=== PATIENT | female | born 1985 | race Caucasian/White ===

== ENCOUNTER 2016-08-05 20:43 | Emergency (ER) | payer MEDICAID ==
[2016-08-05] MEDS ORDERED: DEXAMETHASONE 10 MG/ML VIAL PO STA (21:49)
[2016-08-05] MEDS ORDERED: AZITHROMYCIN 250 MG TABLET PO STA (21:49)
[2016-08-05] MEDS ORDERED: CHERRY SYRUP 10 ML UDC PO ONE (21:51)
[2016-08-05] MEDS ORDERED: DEXAMETHASONE 10 MG/ML VIAL ONE (21:51)
[2016-08-05] MEDS ORDERED: AZITHROMYCIN 250 MG TABLET PO ONE (21:51)
== END 2016-08-05 22:04 | disposition home or self-care (01) ==
DX: K04.7 Periapical abscess without sinus (principal); H66.003 Acute suppurative otitis media without spontaneous rupture of ear drum, bilateral; K21.9 Gastro-esophageal reflux disease without esophagitis; Z87.11 Personal history of peptic ulcer disease; F17.200 Nicotine dependence, unspecified, uncomplicated
CPT/HCPCS: 99283; 99284; A9270

== ENCOUNTER 2017-01-19 22:30 | Emergency (ER) | payer MEDICAID ==
[2017-01-19 23:10] LABS: PH,URINE 6.5 PH (5.0-7.5)
[2017-01-19 23:23] LABS: BILIRUBIN,URINE NEGATIVE (NEGATIVE); HCG UR QUAL NEGATIVE; UA w/ MICROSCOPIC CHARGE YES; UR CULTURE IF IND INDICATED; WBC,URINE >25 /HPF (0-5)
--- NOTE | 2017-01-19 23:33 | ED Physician Documentation ---
History of Present Illness - Stated complaint Stated Complaint: RT ARM PX,FEMALE - Chief complaint Chief Complaint: Wound - History obtained from History obtained from: Patient - History of Present Illness Timing: How many days ago (4-5 days (right arm), 1-2 days (urinary symptoms)) Improved by: no ameliorating factors Worsened by: urinating (UTI symptoms). palpation (right arm) - Additonal information Additional information: patient has two c/o: 1) right arm swelling and redness x 4-5 days. Her son was recently treated for "staph infection" (per patient). 2) urinary frequency and burning with urination x 1-2 days Review of Systems Constitutional: reports: Fever (subjective (did not take temperature at home)) : reports: Dysuria, Frequency Skin: reports: Rash (right arm) PD PAST MEDICAL HISTORY - Past Medical History Past Medical History: Yes GI: GERD, Ulcers - Past Surgical History Past Surgical History: No General: Cholecystectomy - Present Medications Home Medications: Ambulatory Orders Medication Instructions Recorded Confirmed HYDROcod/ACETAM 5/325 [[place] 5/325] 1 - 2 ea PO Q6H PRN #15 tablet 07/05/15 Ondansetron Odt [Zofran] 4 mg TL Q6H PRN #10 tablet 07/05/15 Promethazine Supp [Phenergan Supp] [address] Q6HR PRN #10 supp 07/05/15 Azithromycin [Zithromax] 250 mg PO DAILY #4 tablet 08/05/16 Cephalexin [Keflex] 500 mg PO Q6HR #39 capsule 01/20/17 HYDROcod/ACETAM 5/325 [[place] 5/325] 1 - 2 ea PO Q6H PRN #15 tablet 01/20/17 Sulfamethox/Trimeth 800/160 1 each PO BID #14 tablet 01/20/17 [Bactrim Ds 800/160] - Allergies Allergies/Adverse Reactions: Allergies Allergy/AdvReac Type Severity Reaction Status Date / Time No Known Drug Allergies Allergy Verified 01/19/17 22:41 - Social History Does the pt smoke?: Yes Smoking Status: Current every day smoker Does the pt drink ETOH?: No Does the pt have substance abuse?: No - Immunizations Immunizations are current?: Yes - POLST Patient has POLST: No PD ED PE NORMAL - Vitals Vital signs reviewed: Yes - General General: Alert and oriented X 3, No acute distress, Well developed/nourished - Abdomen Abdomen: Soft, Non tender PD ED PE EXPANDED - Extremities NICOLASA UE/Hands Visual: 1 - swelling (firm swelling, erythema, tenderness; approximately 3 cm diameter of erythema. there is a central, deep sinus tract that is not actively draining) , tenderness Results - Vitals Vitals: Vital Signs - 24 hr 01/19/17 01/20/17 22:38 01:20 Temperature 37.1 C Heart Rate 68 70 Respiratory 18 18 Rate Blood Pressure 135/79 H 129/71 O2 Saturation 100 100 Oxygen O2 Source Room air - Labs Labs: Laboratory Tests 01/19/17 22:47 Urine Color YELLOW Urine Clarity CLEAR Urine pH 6.5 Ur Specific [place] 1.020 Urine Protein 30 H Urine Glucose (UA) NEGATIVE Urine Ketones NEGATIVE Urine Occult Blood TRACE-LYSE Urine Nitrite NEGATIVE Urine Bilirubin NEGATIVE Urine Urobilinogen 1 (NORMAL) Ur Leukocyte Esterase SMALL H Urine RBC 6-10 H Urine WBC >25 H Ur Squamous Epith Cells NONE SEEN Urine Bacteria None Seen Ur Microscopic Review INDICATED Urine Culture Comments INDICATED Urine HCG, Qual NEGATIVE PD MEDICAL DECISION MAKING - ED course Complexity details: reviewed results, considered differential, d/w patient ED course: After sterile prep, lidocaine 2% without epinephrine infiltrated into the right arm lesion. No pus aspirated with several attempts with #23g needle. The lesion does not appear large enough to warrant incision at this time. Will treat with PO antibiotics and instructed to f/u with PMD but return to ED if worse in any way. Departure - Departure Disposition: 01 Home, Self Care Clinical Impression: Cellulitis Qualifiers: Site of cellulitis: extremity Site of cellulitis of extremity: upper extremity Laterality: right Qualified Code(s): L03.113 - Cellulitis of right upper limb Urinary tract infection Qualifiers: Urinary tract infection type: acute cystitis Hematuria presence: with hematuria Qualified Code(s): N30.01 - Acute cystitis with hematuria Condition: Good Instructions: ED Staph Infec Abx Tx Only, ED Infec Skin Cellulitis Follow-Up: [facility] [Provider Group] Prescriptions: Cephalexin [Keflex] 500 mg PO Q6HR #39 capsule Sulfamethox/Trimeth 800/160 [Bactrim Ds 800/160] 1 each PO BID #14 tablet HYDROcod/ACETAM 5/325 [[place] 5/325] 1 - 2 ea PO Q6H PRN #15 tablet PRN Reason: Pain Discharge Date/Time: 01/20/17 01:21
[2017-01-19] MEDS ORDERED: LIDOCAINE 2% 10 ML MDV SUBQ STA (23:53)
[2017-01-19] MEDS ORDERED: LIDOCAINE 2% 10 ML MDV ONE (23:57)
[2017-01-20] MEDS ORDERED: SULFAMETH/TRIMETH DS 800/160 MG TABLET PO STA (01:08)
[2017-01-20] MEDS ORDERED: CEPHALEXIN 250 MG CAPSULE PO STA (01:08)
[2017-01-20] MEDS ORDERED: HYDROcod/ACET 5/325 Prepack 6 PO STA (01:09)
[2017-01-20] MEDS ORDERED: CEPHALEXIN 250 MG CAPSULE PO ONE (01:18)
[2017-01-20] MEDS ORDERED: SULFAMETH/TRIMETH DS 800/160 MG TABLET PO ONE (01:18)
[2017-01-20] MEDS ORDERED: HYDROcod/ACET 5/325 Prepack 6 PO ONE (01:18)
[2017-01-20 01:21] VITALS: BP 129/71
== END 2017-01-20 01:21 | disposition home or self-care (01) ==
LOC: ED 22:30
DX: N30.01 Acute cystitis with hematuria (principal); L03.113 Cellulitis of right upper limb; K21.9 Gastro-esophageal reflux disease without esophagitis; Z87.11 Personal history of peptic ulcer disease; F17.200 Nicotine dependence, unspecified, uncomplicated
CPT/HCPCS: 10160; 81001; 81025; 87077; 87086; 87181; 99283; A9270; 81003

== ENCOUNTER 2017-03-13 22:17 | Emergency (ER) | payer MEDICAID ==
[2017-03-13 22:23] VITALS: BP 147/79
[2017-03-13] MEDS ORDERED: BUPIVACAINE 0.25% PF 30 ML VIAL ONE (22:53)
[2017-03-13] MEDS ORDERED: IBUPROFEN 600 MG TABLET PO STA (23:25)
--- NOTE | 2017-03-13 23:27 | ED Physician Documentation ---
PD HPI HEENT - Stated complaint Stated Complaint: TOOTH PAIN - Chief complaint Chief Complaint: Heent - History obtained from History obtained from: Patient - History of Present Illness Timing - onset: Today Timing - details: Abrupt onset Location: Tooth Improves: Nothing Similar symptoms before: Work up / diagnostics, Treatment Recently seen: Not recently seen - Additional information Additional information: Patient is a 31 year old female with no significant past medical history who is presenting to the emergency department for tooth pain. Patient states that she was at dinner, and she bit something and she thinks she chipped her tooth. Patient states that she had a cavity and a cap that had come off. Patient was bringing her son in for evaluation so she checked in as well. Review of Systems Constitutional: denies: Fever, Chills Eyes: denies: Decreased vision, Photophobia Ears: denies: Ear pain, Drainage/discharge Nose: denies: Rhinorrhea / runny nose, Congestion Throat: reports: Dental pain / toothache. denies: Sore throat Cardiac: denies: Chest pain / pressure, Palpitations Respiratory: denies: Cough, Wheezing GI: denies: Nausea, Vomiting : reports: Reviewed and negative Skin: reports: Reviewed and negative Musculoskeletal: denies: Neck pain Neurologic: denies: Focal weakness, Numbness, Headache Immunocompromised: denies: Immunocompromised PD PAST MEDICAL HISTORY - Past Medical History Past Medical History: Yes GI: None - Past Surgical History Past Surgical History: No General: Cholecystectomy - Present Medications Home Medications: Ambulatory Orders Medication Instructions Recorded Confirmed Multivitamin-Min/Iron/FA/Vit K 1 tab ORAL DAILY 03/13/17 03/13/17 [Multi For Her Softgel] - Allergies Allergies/Adverse Reactions: Allergies Allergy/AdvReac Type Severity Reaction Status Date / Time No Known Drug Allergies Allergy Verified 03/13/17 22:22 - Social History Does the pt smoke?: Yes Smoking Status: Current every day smoker Does the pt drink ETOH?: No Does the pt have substance abuse?: No - Immunizations Immunizations are current?: Yes - POLST Patient has POLST: No PD ED PE NORMAL - Vitals Vital signs reviewed: Yes - General General: Alert and oriented X 3, No acute distress - HEENT HEENT: Atraumatic, PERRL, Moist mucous membranes, Pharynx benign - Neck Neck: Supple, no meningeal sign - Cardiac Cardiac: RRR, No murmur - Respiratory Respiratory: No respiratory distress - Abdomen Abdomen: Non distended - Derm Derm: Normal color, Warm and dry, No rash - Extremities Extremities: No deformity, Normal ROM s pain - Neuro Neuro: Alert and oriented X 3, No motor deficit, No sensory deficit, Normal speech - Psych Psych: Normal mood PD ED PE EXPANDED - HEENT HEENT: Dental decay (cracked teeth with dental caries. no abscess or fluid collection) Results - Vitals Vitals: Vital Signs - 24 hr 03/13/17 22:19 Temperature 36.1 C L Heart Rate 75 Respiratory 18 Rate Blood Pressure 147/79 H O2 Saturation 97 Oxygen O2 Source Room air Procedures - Regional nerve block Nerve block site: Post superior alveolar Right / left: Left Nerve block anesthesia: Marcaine 0.25% Nerve block aftercare: Moderate Anesthesia, Patient tolerated well, No complications PD MEDICAL DECISION MAKING - ED course Complexity details: reviewed old records, re-evaluated patient, considered differential, d/w patient ED course: Patient was seen and examined at bedside. Patient showed no sign of acute abscess or infection. superior alveolar block was performed and had mild relief. Patient was treated with additional ibuprofen but patient stated that motrin and tylenol don't work for her. Patient was made aware that no additional medications were necessary and she needed to follow up with her primary dentist. Patient was stable for discharge with outpatient follow up. Departure - Departure Disposition: 01 Home, Self Care Clinical Impression: Pain due to dental caries Condition: Good Instructions: ED Tooth Pain Follow-Up: primary,dentist [Other] - Within 1 week Comments: There is no abscess or fluid collection. the only way to deal with the pain is to eventually get it fixed by your dentist or have your tooth pulled. You can take motrin or tylenol as needed for pain. You may return for abscess, fluid collection, fever or chills. Discharge Date/Time: 03/13/17 23:35
[2017-03-13] MEDS ORDERED: IBUPROFEN 600 MG TABLET PO ONE (23:31)
== END 2017-03-13 23:35 | disposition home or self-care (01) ==
LOC: ED 22:17
DX: K02.9 Dental caries, unspecified (principal); K08.89 Other specified disorders of teeth and supporting structures; F17.200 Nicotine dependence, unspecified, uncomplicated
CPT/HCPCS: 64400; 99283; A9270

== ENCOUNTER 2017-04-30 16:30 | Outpatient (CLI) | payer MEDICAID | END 2017-04-30 16:31 | disposition home or self-care (01) | LOC: LAB.R 16:30 | PROVIDERS: ATTEND Physician Assistant Medical | DX: L98.9 Disorder of the skin and subcutaneous tissue, unspecified (principal) ==

== ENCOUNTER 2017-06-03 23:21 | Emergency (ER) | payer MEDICAID ==
[2017-06-03 23:30] VITALS: BP 149/104
== END 2017-06-04 00:35 | disposition left against medical advice (07) ==
LOC: ED 23:21
DX: Z53.21 Procedure and treatment not carried out due to patient leaving prior to being seen by health care provider (principal)

== ENCOUNTER 2017-11-26 09:50 | Emergency (ER) | payer MEDICAID ==
[2017-11-26] MEDS ORDERED: CLINDAMYCIN 900 MG/50 ML 50 ML IV ONE (11:57)
[2017-11-26] MEDS ORDERED: IOPAMIDOL-300 100 ML VIAL ONE (12:27)
[2017-11-26] MEDS ORDERED: fentaNYL 100 MCG/2 ML VIAL IVP STA ×2 (12:39→14:20)
[2017-11-26] MEDS ORDERED: IOPAMIDOL-300 100 ML VIAL IVP ONE (13:59)
--- NOTE | 2017-11-26 14:13 | CT Report ---
Procedure Date: 11/26/2017 Accession Number: [id number] / [id number] Procedure: CT - Facial Bones W/ CPT Code: FULL RESULT: EXAM: CT MAXILLOFACIAL WITH CONTRAST EXAM DATE: 11/26/2017 01:54 PM. CLINICAL HISTORY: 32-year-old with right facial swelling. COMPARISONS: None. TECHNIQUE: Thin-section axial images were acquired of the face after administration of intravenous contrast. Post-processing: Coronal and sagittal reformats. Other: None. IV contrast: 100 cc Isovue-300. In accordance with CT protocol optimization, one or more of the following dose reduction techniques were utilized for this exam: automated exposure control, adjustment of mA and/or KV based on patient size, or use of iterative reconstructive technique. FINDINGS: Dental: There periapical lucencies seen involving ADA teeth 17, 21, 28, 29 and 32. There is buccal cortical breakthrough involving ADA teeth 28 and 32. Soft Tissue: There is asymmetric soft tissue thickening seen overlying the buccal cortical breakthrough of ADA tooth 32 adjacent to the right mandibular angle measuring 14 x 12 x 8 mm (cc by TRV by AP). There is soft tissue stranding and edema seen extending into the right lower face, right buccal space, and right cheek. No definite rim-enhancing rim enhancing fluid collection seen. Soft tissue stranding abuts the right masseter muscle. Orbits: The orbits appear normal. Bones: No fracture or bone lesion. Temporomandibular Joints: The temporomandibular joints are symmetric and normally located. Sinuses: Normal. No mucosal thickening or fluid levels. Glands: The parotid and submandibular glands are unremarkable. Other: None. IMPRESSION: 1. There periapical lucencies seen involving ADA teeth 17, 21, 28, 29 and 32 with apparent buccal cortical breakthrough involving ADA teeth 28 and 32. 2. There is asymmetric soft tissue thickening seen overlying the buccal cortical breakthrough of ADA tooth 32 measuring 14 x 12 x 8 mm (cc by TRV by AP) concerning for phlegmon. No rim-enhancing fluid collection seen. 3. Moderate volume cellulitis is seen involving the right lower face, right buccal space, and right cheek. No rim-enhancing fluid collection seen. RADIA
--- NOTE | 2017-11-26 14:24 | ED Physician Documentation ---
PD HPI HEENT - Stated complaint Stated Complaint: FACE/ARM SWELLING - Chief complaint Chief Complaint: Wound - History obtained from History obtained from: Patient - History of Present Illness Timing - onset: Yesterday Location: Other (right face) - Additional information Additional information: The patient is a 32-year-old female who presents with right facial swelling that started yesterday and has become much worse today. She has associated discomfort and slight headache. She denies fever, difficulty swallowing, cough or shortness of breath. She denies history of similar symptoms in the past. She does report a past history of abscesses on her extremities, for which she has undergone incision and drainage. She denies any prior history of MRSA, stating that previous cultures have grown methicillin sensitive staph. Review of Systems Constitutional: denies: Fever Eyes: denies: Irritation Ears: denies: Ear pain Nose: denies: Congestion Throat: reports: Dental pain / toothache. denies: Sore throat Cardiac: denies: Chest pain / pressure Respiratory: denies: Dyspnea, Cough GI: denies: Abdominal Pain, Nausea, Vomiting : denies: Dysuria Skin: reports: Other (Abscess on left forearm, and right axilla.) Musculoskeletal: denies: Neck pain Neurologic: reports: Headache (mild) PD PAST MEDICAL HISTORY - Past Medical History Past Medical History: Yes GI: None - Past Surgical History Past Surgical History: No General: Cholecystectomy - Present Medications Home Medications: Ambulatory Orders Medication Instructions Recorded Confirmed Clindamycin HCl [Clindamycin 300MG 300 mg PO QID #40 capsule 11/26/17 CAP] HYDROcod/ACETAM 5/325 [[place] 5/325] 1 - 2 ea PO Q6H PRN #15 tablet 11/26/17 - Allergies Allergies/Adverse Reactions: Allergies Allergy/AdvReac Type Severity Reaction Status Date / Time No Known Drug Allergies Allergy Verified 11/26/17 10:28 - Social History Does the pt smoke?: Yes Smoking Status: Current every day smoker Does the pt drink ETOH?: No Does the pt have substance abuse?: No - Immunizations Immunizations are current?: Yes - POLST Patient has POLST: No PD ED PE NORMAL - Vitals Vital signs reviewed: Yes (Systolic hypertension initially.) - General General: Alert and oriented X 3, Well developed/nourished - HEENT HEENT: EOMI, Ears normal, Pharynx benign, Other (Right facial swelling in the mandibular region, with associated tenderness to palpation. There is no significant tenderness with palpation on individual teeth.) - Neck Neck: Supple, no meningeal sign, Other (Right anterior cervical adenopathy.) - Cardiac Cardiac: RRR, No murmur - Respiratory Respiratory: No respiratory distress, Clear bilaterally - Abdomen Abdomen: Soft, Non tender - Back Back: No CVA TTP - Derm Derm: Other (The patient's face, extremities are totally covered with small pick wounds, suggestive of chronic drug use.) - Extremities Extremities: Other (There is a 2 cm diameter area of swelling on the left forearm, with fluctuance, consistent with abscess. There is also a 1 cm diameter draining abscess in the right axilla.) - Neuro Neuro: Alert and oriented X 3, No motor deficit, Normal speech Results - Vitals Vitals: Vital Signs - 24 hr 11/26/17 11/26/17 11/26/17 10:24 12:59 13:07 Temperature 36.8 C Heart Rate 92 82 88 Respiratory 16 21 19 Rate Blood Pressure 145/79 H 150/93 H 128/89 H O2 Saturation 100 100 99 11/26/17 11/26/17 11/26/17 13:36 14:48 15:02 Temperature 36.8 C Heart Rate 92 89 Respiratory 18 18 Rate Blood Pressure 135/89 H 143/87 H 131/91 H O2 Saturation 100 100 Oxygen O2 Source Room air - Labs Labs: Microbiology 11/26/17 14:30 Wound Culture - Preliminary Abscess - Rads (name of study) Facial CT Radiology: Prelim report reviewed, EMP read contemporaneously, See rad report ( 1) Periapical lucencies seen involving ADA teeth 17, 21, 28, 29, and 32 with apparent buckle cortical breakthrough involving ADA teeth 28 and 32. 2) there is asymmetric soft tissue thickening seen overlying the buccal cortical breakthrough of 80 8T 32 measuring 14 x 12 x 8 mm concerning for phlegmon. No rim-enhancing fluid collection seen. 3) moderate volume cellulitis is seen involving the right lower face, right buccal space, and right cheek. No rim- enhancing fluid collection seen.) Procedures - Abscess I&D (location) left forearm Preparation: Betadine, Lidocaine 1% Incision: Incised with scalpel, Purulent drainage, Irrigated, Packed, Culture obtained Other: Pt tolerated well, Dressing applied, Antibiotic prescribed PD MEDICAL DECISION MAKING - ED course Complexity details: reviewed old records, reviewed results, re-evaluated patient , considered differential, d/w patient, d/w family ED course: The patient's presentation is significant for dental abscess with right facial phlegmon, without drainable fluid collection seen on CT scan. In addition she has abscesses on her left forearm and right axilla. The one in the axilla is already draining and does not need incision. The one on the left forearm was treated with incision and drainage, irrigation, and packing. Further treatment included administration of clindamycin 900 mg IV, and fentanyl 50 g IV times two. She is being discharged with prescriptions for clindamycin and for Vicodin , 15 tablets. 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 - Sepsis Event Vital Signs: Vital Signs - 24 hr 11/26/17 11/26/17 11/26/17 10:24 12:59 13:07 Temperature 36.8 C Heart Rate 92 82 88 Respiratory 16 21 19 Rate Blood Pressure 145/79 H 150/93 H 128/89 H O2 Saturation 100 100 99 11/26/17 11/26/17 11/26/17 13:36 14:48 15:02 Temperature 36.8 C Heart Rate 92 89 Respiratory 18 18 Rate Blood Pressure 135/89 H 143/87 H 131/91 H O2 Saturation 100 100 Oxygen O2 Source Room air Departure - Departure Disposition: 01 Home, Self Care Clinical Impression: Dental abscess, Abscess Condition: Stable Instructions: ED Abscess IandD, ED Dental Abscess Facial Cellulitis Follow-Up: Nish Collins MD [Primary Care Provider] - Prescriptions: Clindamycin HCl [Clindamycin 300MG CAP] 300 mg PO QID #40 capsule HYDROcod/ACETAM 5/325 [[place] 5/325] 1 - 2 ea PO Q6H PRN #15 tablet PRN Reason: Pain Comments: Take clindamycin 4 times daily as prescribed. You can use Vicodin as prescribed if needed for pain. He can use ibuprofen, up to 800 mg 4 times daily for its anti-inflammatory effect. Follow up with your primary physician within 1-2 weeks. Call to schedule appointment. Return to the emergency department if you develop increasing facial swelling, fever with shaking chills, or otherwise worsening symptoms. Discharge Date/Time: 11/26/17 15:02
[2017-11-26] MEDS ORDERED: LIDOCAINE 2%-EPI 1:100000 20 ML MDV SUBQ STA (14:27)
[2017-11-26 15:04] VITALS: BP 131/91
== END 2017-11-26 15:02 | disposition home or self-care (01) ==
LOC: ED 09:50
DX: K04.7 Periapical abscess without sinus (principal); L02.411 Cutaneous abscess of right axilla; L02.414 Cutaneous abscess of left upper limb; F17.200 Nicotine dependence, unspecified, uncomplicated
CPT/HCPCS: 10060; 70487; 87070; 87181; 87205; 96365; 96375; 96376; 99283; 99284

== ENCOUNTER 2018-05-10 15:49 | Outpatient (CLI) | payer MEDICAID ==
[2018-05-10 19:07] LABS: BASOPHILS % (AUTO) 1.2 %; EOSINOPHILS % (AUTO) 4.4 %; HGB - HEMOGLOBIN 11.8 g/dL (12.0-16.0); LYMPHOCYTES % (AUTO) 9.2 %; MEAN CORPUSCULAR HEMOGLOBIN 28.3 pg (27.0-31.0); MEAN CORPUSCULAR HGB CONC 31.8 g/dL (32.0-36.0); MEAN CORPUSCULAR VOLUME 89.1 fL (81.0-99.0); MEAN PLATELET VOLUME 9.8 fL (7.9-10.8); MONOCYTES % (AUTO) 4.6 %; NEUTROPHILS % (AUTO) 80.6 %; PLT - PLATELET COUNT 467 10^3/uL (130-450); RED BLOOD COUNT 4.16 10^6/uL (4.20-5.40); WHITE BLOOD COUNT 23.4 x10^3/uL (4.8-10.8)
[2018-05-10 19:09] LABS: ABNORMAL LYMPHS % (MANUAL) 0 %
[2018-05-10 19:21] LABS: ALBUMIN 3.1 g/dL (3.2-5.5); ALBUMIN/GLOBULIN RATIO 0.7 (1.0-2.2); BILIRUBIN,TOTAL 0.3 mg/dL (0.2-1.0); CALCIUM 8.7 mg/dL (8.5-10.3); CREATININE 0.5 mg/dL (0.4-1.0); CRP - C-REACTIVE PROTEIN 13.3 mg/dL (0-1.0); TOTAL PROTEIN 7.5 g/dL (6.7-8.2)
[2018-05-10 19:22] LABS: BAND NEUTROPHILS % (MANUAL) 4 %; LYMPHOCYTES # (MANUAL) 1.9 10^3/uL (1.5-3.5); LYMPHOCYTES % (MANUAL) 8 %; MONOCYTES # (MANUAL) 0.7 10^3/uL (0.0-1.0); NEUTROPHILS # (MANUAL) 20.8 10^3/uL (1.5-6.6); NEUTROPHILS % (MANUAL) 85 %
[2018-05-10 19:23] LABS: DIFFERENTIAL COMMENT MANUAL DIFFERENTIAL; PLATELET ESTIMATE, MANUAL INCREASED (>450,000) (NORMAL); PLATELET MORPHOLOGY NORMAL APPEARANCE (NORMAL); RBC MORPHOLOGY (MULTIPLE) NORMAL APPEARANCE (NORMAL)
== END 2018-05-10 23:59 | disposition home or self-care (01) ==
LOC: LAB.N 15:49
PROVIDERS: ATTEND Physician Assistant Medical
DX: L03.113 Cellulitis of right upper limb (principal); L02.413 Cutaneous abscess of right upper limb
CPT/HCPCS: 36415; 80053; 85025; 85651; 86140; 87070; 87077; 87181; 87205

== ENCOUNTER 2018-10-27 14:59 | Inpatient (IN) | payer MEDICAID ==
[2018-10-27] MEDS ORDERED: HYDROmorphone 1 MG/ML CARPUJECT IM STA (15:23)
[2018-10-27] MEDS ORDERED: BUFFERED LIDOCAINE 10 ML SYRINGE SUBQ STA (15:23)
[2018-10-27] MEDS ORDERED: LORazepam 2 MG/ML VIAL IM STA (15:23)
--- NOTE | 2018-10-27 15:25 | ED Physician Documentation ---
PD HPI SKIN - Stated complaint Stated Complaint: RT HAND SWELLING/PX - Chief complaint Chief Complaint: Wound - History obtained from History obtained from: Patient - History of Present Illness Timing - onset: Other (5-day history of increasingly painful and swollen lesion over the dorsum of the right wrist. She denies injection drug use, there is a possibility of . She was seen by her physician yesterday who told her to come directly to the emergency department but could not make it yesterday.) Review of Systems Ten Systems: 10 systems reviewed and negative Constitutional: denies: Fever, Chills Cardiac: reports: Reviewed and negative Respiratory: reports: Reviewed and negative GI: reports: Reviewed and negative PD PAST MEDICAL HISTORY - Past Medical History Past Medical History: No GI: None - Past Surgical History Past Surgical History: No General: Cholecystectomy - Present Medications Home Medications: Ambulatory Orders Medication Instructions Recorded Confirmed No Known Home Medications 10/27/18 10/27/18 - Allergies Allergies/Adverse Reactions: Allergies Allergy/AdvReac Type Severity Reaction Status Date / Time No Known Drug Allergies Allergy Verified 11/26/17 10:28 - Social History Does the pt smoke?: Yes Smoking Status: Current every day smoker Does the pt drink ETOH?: No Does the pt have substance abuse?: No - Family History Family history: reports: Non contributory - Immunizations Immunizations are current?: Yes - POLST Patient has POLST: No PD ED PE NORMAL - Vitals Vital signs reviewed: Yes - General General: Alert and oriented X 3, No acute distress - HEENT HEENT: PERRL, EOMI - Neck Neck: Supple, no meningeal sign, No bony TTP - Cardiac Cardiac: RRR, No murmur - Respiratory Respiratory: No respiratory distress, Clear bilaterally - Abdomen Abdomen: Normal bowel sounds, Soft, Non tender - Back Back: No CVA TTP, No spinal TTP - Derm Derm: Other (There is a large pointed abscess measuring about 8 x 3 cm over the dorsum of the right wrist with surrounding cellulitis.) - Extremities Extremities: No edema, No calf tenderness / cord - Neuro Neuro: Alert and oriented X 3, Normal speech - Psych Psych: Normal mood, Normal affect Results - Vitals Vitals: Vital Signs - 24 hr 10/27/18 15:17 Temperature 36.8 C Heart Rate 106 H Respiratory 18 Rate Blood Pressure 134/92 H O2 Saturation 100 Oxygen O2 Source Room air - Labs Labs: Laboratory Tests 10/27/18 10/27/18 15:32 15:32 Ur Specific [place] 1.015 Urine HCG, Qual NEGATIVE Urine Opiates Screen NEGATIVE Ur Oxycodone Screen NEGATIVE Urine Methadone Screen NEGATIVE Ur Propoxyphene Screen NEGATIVE Ur Barbiturates Screen NEGATIVE Ur Tricyclics Screen NEGATIVE Ur Phencyclidine Scrn NEGATIVE Ur Amphetamine Screen POSITIVE H U Methamphetamines Scrn NEGATIVE U Benzodiazepines Scrn NEGATIVE Urine Cocaine Screen NEGATIVE U Cannabinoids Screen NEGATIVE Procedures - General procedure General procedure: She was difficult for IV access, multiple nurses tried and failed. I personally placed a 22-gauge long IV in the left deep brachial vein using real-time ultrasound guidance. During this process and looking at the veins I noted a foreign object in the left antecubital fossa which she admitted was a 2-year-old needle from injection drug use. 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 It is quite extensive and her pain is severe necessitating multiple doses of narcotics. An incision and drainage was done and a culture was obtained. Spoke with Dr. Arboleda for admission at 4:[address] Silvestre, the orthopedic surgeon for consultation at 4:29 PM. Departure - Departure Disposition: [facility] DC/Xfer Clinical Impression: Abscess, wrist, Cellulitis of wrist Condition: Stable
[2018-10-27 15:39] LABS: MUDS CUTOFF CONCENTRATIONS CUTOFF CONC BELOW:
[2018-10-27 15:49] LABS: HCG UR QUAL NEGATIVE
[2018-10-27] MEDS ORDERED: SULFAMETH/TRIMETH DS 800/160 MG TABLET PO STA (15:54)
[2018-10-27 15:57] LABS: AMPHETAMINE SCREEN,URINE POSITIVE (NEGATIVE); BENZODIAZEPINES SCREEN, URINE NEGATIVE (NEGATIVE); COCAINE SCREEN URINE NEGATIVE (NEGATIVE); METHADONE SCREEN, URINE NEGATIVE (NEGATIVE); METHAMPHETAMINES SCREEN, URINE NEGATIVE (NEGATIVE); OPIATE SCREEN, URINE NEGATIVE (NEGATIVE); OXYCODONE SCREEN, URINE NEGATIVE (NEGATIVE); PROPOXYPHENE SCREEN, URINE NEGATIVE (NEGATIVE); TRICYCLIC ANTIDEPRESSANT,URINE NEGATIVE (NEGATIVE)
[2018-10-27] MEDS ORDERED: VANCOMYCIN INJ 1.5 GM in SODIUM CHLORIDE 0.9% 500 ML IV STA (16:25)
[2018-10-27] MEDS ORDERED: HYDROmorphone 1 MG/ML CARPUJECT IVP STA (16:29)
[2018-10-27] MEDS ORDERED: TEMAZEPAM 15 MG CAPSULE PO PRN (16:45)
[2018-10-27] MEDS ORDERED: ACETAMINOPHEN 325 MG TABLET PO PRN (16:45)
[2018-10-27] MEDS ORDERED: SODIUM CHLORIDE FLUSH 0.9% 10 ML SYRINGE IVP PRN (16:45)
[2018-10-27] MEDS ORDERED: HYDROmorphone 1 MG/ML CARPUJECT IVP PRN (16:45)
[2018-10-27] MEDS ORDERED: PROCHLORPERAZINE 10 MG/2 ML VIAL IVP PRN (16:45)
[2018-10-27] MEDS ORDERED: VANCOMYCIN PER PHARMACY 100 GM in SODIUM CHLORIDE 0.9% 250 ML IV SCH (17:00)
[2018-10-27 17:51] LABS: BASOPHILS # (AUTO) 0.1 10^3/uL (0.0-0.1); EOSINOPHILS # (AUTO) 0.4 10^3/uL (0.0-0.7); EOSINOPHILS % (AUTO) 3.4 %; HGB - HEMOGLOBIN 12.7 g/dL (12.0-16.0); LYMPHOCYTES # (AUTO) 3.5 10^3/uL (1.5-3.5); LYMPHOCYTES % (AUTO) 32.6 %; MEAN CORPUSCULAR HEMOGLOBIN 27.4 pg (27.0-31.0); MEAN CORPUSCULAR HGB CONC 32.7 g/dL (32.0-36.0); MEAN CORPUSCULAR VOLUME 83.8 fL (81.0-99.0); MEAN PLATELET VOLUME 7.6 fL (7.9-10.8); MONOCYTES # (AUTO) 0.8 10^3/uL (0.0-1.0); MONOCYTES % (AUTO) 7.6 %; NEUTROPHILS # (AUTO) 5.9 10^3/uL (1.5-6.6); NEUTROPHILS % (AUTO) 55.4 %; PLT - PLATELET COUNT 277 10^3/uL (130-450); RED BLOOD COUNT 4.64 10^6/uL (4.20-5.40); RED CELL DISTRIBUTION WIDTH 15.8 % (12.0-15.0); WHITE BLOOD COUNT 10.7 x10^3/uL (4.8-10.8)
[2018-10-27 18:11] LABS: ALBUMIN 3.4 g/dL (3.2-5.5); ALBUMIN/GLOBULIN RATIO 0.9 (1.0-2.2); BILIRUBIN,TOTAL 0.4 mg/dL (0.2-1.0); CALCIUM 9.1 mg/dL (8.5-10.3); CREATININE 0.7 mg/dL (0.4-1.0); TOTAL PROTEIN 7.4 g/dL (6.7-8.2)
--- NOTE | 2018-10-27 19:43 | HISTORY & PHYSICAL EXAMINATION ---
DATE OF SERVICE: 10/27/2018 Physician: Dilcia Arboleda MD HISTORY OF PRESENT ILLNESS: This is a 33-year-old white female with a history of prior IV drug use, a retained needle is present in the left antecubital area because of this. She has not used drugs in 2 months, she told the emergency room doctor. She has had multiple skin lesions abcsess in the past, and is MRSA positive. There is a new history of increasingly painful and swollen, enlarging "lump" over the dorsum of her right wrist for which she saw her PCP yesterday who told her to come directly to the emergency room. However, she apparently got a flat tire and could not come until today. In the emergency room, she denied any fevers or chills, no drainage from the site, no cardiopulmonary or GI symptoms. The area was incised and drained by the emergency room doctor and samples of the fluid were sent for analysis and the right wrist is now bandaged. The patient had severe pain and she received IV Dilaudid and is now somnolent. The impression was that of cellulitis also present on the right, from the elbow down to the fingertips. PAST MEDICAL HISTORY 1. IV drug abuse. 2. Cholecystectomy. 3. Tobacco use. ALLERGIES: NONE. MEDICATIONS: None. FAMILY HISTORY: Noncontributory. SOCIAL HISTORY: She is a current smoker, drinks no alcohol, has not used IV drugs in the past 2 months, but had a longstanding history of this. PHYSICAL EXAMINATION GENERAL: Somnolent white female. She appears in no distress, supine in bed. VITAL SIGNS: Blood pressure 134/92, heart rate 106 in sinus tachycardia, afebrile, room air saturation 100%. HEENT: Reveals moist oral mucosa. NECK: Without JVD. LUNGS: Clear. HEART: Normal heart sounds. ABDOMEN: Soft. EXTREMITIES: No edema. The right arm has mild redness and warmth from the fingertips to the elbow and there is a large bandage over the right wrist, which was not opened. NEURO: She is currently sedated, but she was moving all her extremities and answering appropriately in the emergency room. IMAGING: No imaging was done; no chest x-ray, no x-rays of the right upper extremity. No EKG was done. LABORATORY DATA: Sodium 136, potassium 4.1, BUN 11, creatinine 0.7. Lactic acid 0.9, AST 94, ALT 451, lipase normal at 29, alkaline phosphatase normal at 112. Her toxicology showed positive for amphetamines, negative for meth and the other compounds. Urinalysis showed a specific gravity of 1.015, and it was negative for hCG. IMPRESSION/DIAGNOSES 1. Wrist abscess, right-sided, status post incision and drainage, now covered in a bandage. 2. Cellulitis of the right arm and hand. 3. History of methicillin-resistant Staphylococcus aureus, and prior skin abscesses. 4. Intravenous drug abuse history. 5. Elevated liver function tests. PLAN: Admit the patient to a medical/surgical bed. Obtain blood cultures. Continue with IV vancomycin management because of MRSA being again present, is highly possible. Await the cultures obtained from the fluid of the abscess and adjust antibiotics as needed. Because of repeat prior skin abscesses, will obtain an Echo to evaluate for vegetation. This will also determine the course and type of her antibiotic treatment. Continue with pain medications as needed with Tylenol or Tylenol with codeine and minimal narcotics. Consider an occupational therapy consult. Orthopedic consult was already requested by the ER doctor. Obtain labs to check for Hepatitis B and C, given the iv drug use history. Monitor the LFTs daily while here. CODE STATUS: FULL CODE. DEEP VENOUS THROMBOSIS PROPHYLAXIS: SCDs. ATTESTATION: The patient is expected to be discharged or transferred to another facility within 96 hours: Yes. TD: 10/27/2018 19:27 BRETT
[2018-10-27] MEDS: SODIUM CHLORIDE FLUSH 0.9% 10 ML SYRINGE IVP SCH ×2 (21:44→23:41)
[2018-10-27] MEDS: FAMOTIDINE 20 MG TABLET PO SCH (21:45)
[2018-10-28] MEDS: VANCOMYCIN INJ 1 GM, VANCOMYCIN INJ 250 MG in SODIUM CHLORIDE 0.9% 250 ML IV SCH ×2 (02:14→10:07)
[2018-10-28 05:41] LABS: BASOPHILS # (AUTO) 0.1 10^3/uL (0.0-0.1); BASOPHILS % (AUTO) 0.9 %; EOSINOPHILS # (AUTO) 0.4 10^3/uL (0.0-0.7); HGB - HEMOGLOBIN 13.1 g/dL (12.0-16.0); LYMPHOCYTES % (AUTO) 37.9 %; MEAN CORPUSCULAR HEMOGLOBIN 27.3 pg (27.0-31.0); MEAN CORPUSCULAR HGB CONC 32.3 g/dL (32.0-36.0); MEAN CORPUSCULAR VOLUME 84.6 fL (81.0-99.0); MEAN PLATELET VOLUME 8.2 fL (7.9-10.8); MONOCYTES # (AUTO) 0.6 10^3/uL (0.0-1.0); MONOCYTES % (AUTO) 7.5 %; NEUTROPHILS # (AUTO) 3.8 10^3/uL (1.5-6.6); NEUTROPHILS % (AUTO) 48.7 %; PLT - PLATELET COUNT 294 10^3/uL (130-450); RED BLOOD COUNT 4.82 10^6/uL (4.20-5.40); RED CELL DISTRIBUTION WIDTH 16.1 % (12.0-15.0); WHITE BLOOD COUNT 7.8 x10^3/uL (4.8-10.8)
[2018-10-28 05:46] LABS: CALCIUM 9.1 mg/dL (8.5-10.3); CREATININE 0.6 mg/dL (0.4-1.0)
[2018-10-28] MEDS: HYDROcod/ACETAM 5/325 MG TABLET PO PRN ×2 (06:25→10:08)
[2018-10-28 08:12] VITALS: BP 135/76
--- NOTE | 2018-10-28 08:51 | CONSULTATION NOTE ---
Referring Provider Name of Referring Provider:: hank Consult Date: 10/28/18 Chief Complaint - Chief Complaint Chief Complaint: right wrist infection History of Present Illness - Admitted From Admitted From:: ER - History Obtained From Records Reviewed: computer History obtained from: patient Exam Limitations: none - History of Present Illness HPI Comment/Other: IV drug use history in past. Prior MRSA infection hx. 5 day hx of increasing pain and swelling on dorsum of right wrist. Saw PMD 6/, but delayed ER visit until yesterday. Found to have large SQ abscess on dorsum of right wrist. I and D done in ER. History - Past Medical History Cardiovascular: reports: Murmur Respiratory: reports: Pneumonia Neuro: reports: None Endocrine/Autoimmune: reports: None GI: reports: None : reports: None HEENT: reports: None Psych: reports: Anxiety Musculoskeletal: reports: None Derm: reports: None MRSA Hx?: Yes - Past Surgical History General: reports: Cholecystectomy - Substance History Use: Uses substance without health or social issues: Tobacco, Other (IV drug use in past) Abuse: Recurrent use of substance despite neg consequences: Other (multiple) - POLST Patient has POLST: No Meds/Allgy - Home Medications Home Medications: Ambulatory Orders Medication Instructions Recorded Confirmed No Known Home Medications 10/27/18 10/27/18 - Allergies Allergies/Adverse Reactions: Allergies Allergy/AdvReac Type Severity Reaction Status Date / Time No Known Drug Allergies Allergy Verified 11/26/17 10:28 Exam - Vital Signs Reviewed Vital Signs: Yes Vital Signs: Vital Signs x48h Temp Pulse Pulse Resp BP Pulse Ox 10/28/18 08:00 37.0 C 101 H 18 135/76 H 100 10/28/18 01:50 36.7 C 86 16 96 - Physical Exam General Appearance: positive: No acute distress Eyes Bilateral: positive: Normal inspection Neck: positive: Nml inspection Cardiovascular: positive: Regular rate & rhythm Abdomen: positive: Non-tender Extremities: positive: Joint swelling Neurologic/Psychiatric: positive: Oriented x3 (Left wrist: dorsal erythema and swelling. Pt. reports "much improved". small wick in I and D site. no purulence, but some serous stain on dressing. Pt. moves wrist, fingers and thumb without difficulty or any severe pain. Mild adenopathy epitrochlear. No streaking on forearm or generalized soft tissue swelling. N/V intact.) Conclusion/Plan - Diagnosis Diagnosis: Abscess left dorsal wrist. drained and responding to meds. - Lab Results Fish Bones: 10/28/18 04:50 10/28/18 04:50 - Other Other Results/Comments: Plan use of IV antibiotics. Dressing changes. Wick to be removed by AM 6/8. On discharge to be f/u in Ortho in 3-5 days.
[2018-10-28] MEDS: FAMOTIDINE 20 MG TABLET PO SCH (08:59)
[2018-10-28] MEDS: SODIUM CHLORIDE FLUSH 0.9% 10 ML SYRINGE IVP SCH (08:59)
[2018-10-28] MEDS ORDERED: POLYETHYLENE GLYCOL 3350 17 GM PACKET PO SCH (09:00)
[2018-10-28] MEDS ORDERED: VANCOMYCIN 500 MG VIAL ONE (10:09)
[2018-10-28] MEDS ORDERED: VANCOMYCIN 1 GM VIAL ONE (10:09)
--- NOTE | 2018-10-28 10:56 | PROVIDER PROGRESS NOTE ---
Assessment/Plan - Problem List (1) Staphylococcus aureus infection Assessment/Plan: Continue empiric iv Vanco for possible MRSA. She will be transitioned to oral antibitics tomorrow, after 48 hours of iv ant ibiotics and when the Staph sensitivities are available. If the Echo shows endocarditis, he will need iv antibiotics via a PICC line in an LTAC. The patient asked to be [facility] today and I explained the plan: awaiting culture results to decide on antibiotic choice. It appeared to me that she was amenable to stay until tomorrow. (2) Abscess, wrist Assessment/Plan: Dr Silvestre spoke to me after evaluating her. He advised 4 weeks of po antibiotics and an outpatient F/U to him in several weeks. He will order the types of dressing changes she needs and the plan will be to take the wick out tomorrow, and the wound will heal by secondary intention. (3) Cellulitis of arm, right Assessment/Plan: As in #1 (4) IV drug abuse Assessment/Plan: The RN showed me the patient's purse containing drug paraphernalia. The patient did admit to me today that she is currently still using drugs by injection. I offered to get her contacts regarding detox, and Social Work to step in, and she said she already has all the contacts and did not verbalize if she is planning to quit or not. (5) Elevated LFTs Assessment/Plan: Awaiting Hep B and C labs. No abdominal sx to image abd (6) Tobacco dependence Assessment/Plan: Patient having nicotine urges, Nicotine patch ordered. - Current Meds Current Meds: Current Medications Generic Name Dose Route Start Last Admin Trade Name Freq PRN Reason Stop Dose Admin Hydrocodone Bitart/Acetaminophen 1 tab 10/27/18 16:45 10/28/18 10:08 [facility] 5/325 PO 1 tab Q4HR PRN Administration Pain 5 to 7 Famotidine 20 mg 10/27/18 21:00 10/28/18 08:59 Pepcid PO 20 mg BID ARIEL Administration Vancomycin HCl 1 gm/ 275 mls @ 185 mls/hr 10/28/18 02:00 10/28/18 10:07 Vancomycin HCl 250 mg/ Sodium IV 185 mls/hr Chloride Q8H ARIEL Administration Polyethylene Glycol 17 gm 10/28/18 09:00 10/28/18 08:59 Miralax PO 17 gm DAILY ARIEL Administration Sodium Chloride 10 ml 10/27/18 17:00 10/28/18 08:59 Normal Saline Flush 0.9% IVP 10 ml 0100,0900,1700 ARIEL Administration - Lab Result Fish Bone Diagrams: 10/28/18 04:50 10/28/18 04:50 - Additional Planning My Orders: My Active Orders 10/27/18 16:45 Activity Orders [RC] Q2HR IO [RC] IOSHIFT Initiate Bowel Care Protocol [RC] .protocol Initiate Line Care Protocol [RC] QSHIFT Initiate Personal Care Protoco [RC] .protocol Oxygen Therapy [RC] Routine Vital Signs [RC] 0800,1600,0000 Acetaminophen [Tylenol] 650 mg PO Q4HR PRN HYDROcod/ACETAM 5/325 [[facility] 5/325] 1 tab PO Q4HR PRN HYDROmorphone INJ CARP [Dilaudid Inj Carp] 1 mg IVP Q6HR PRN Prochlorperazine Inj [Compazine Inj] 10 mg IVP Q6HR PRN Sodium Chloride Flush 0.9% [Normal Saline Flush 0.9%] 10 ml IVP PRN PRN Temazepam [Restoril] 15 mg PO QPM PRN Code Status [OTHERS] Routine Condition of Patient [OTHERS] Routine DVT Prophylaxis [OTHERS] Routine 10/27/18 16:48 IV Insert [RC] .ONCE 10/27/18 16:49 SCDs [RC] QSHIFT 10/27/18 16:54 Orthopedics Consult [CONS] Routine 10/27/18 16:55 Initiate Line Care Protocol [RC] QSHIFT 10/27/18 17:00 Sodium Chloride Flush 0.9% [Normal Saline Flush 0.9%] 10 ml IVP 0100,0900,1700 10/27/18 17:54 CULTURE, BLOOD #1 [RM] Stat 10/27/18 17:59 CULTURE, BLOOD #2 [RM] Stat 10/27/18 21:00 Famotidine [Pepcid] 20 mg PO BID 10/27/18 Dinner Regular Diet [DIET] 10/28/18 02:00 Vancomycin Inj [Vancomycin] 1 gm Vancomycin Inj 250 mg Sodium Chloride 0.9% [Normal Saline 0.9%] 250 ml IV Q8H 10/28/18 04:50 HEPATITIS ACUTE PANEL W CONF [REFLAB] DAILYLAB HEPATITIS B CORE AB TOTAL [REFLAB] DAILYLAB HEPATITIS B SURFACE AB QN IMM [REFLAB] DAILYLAB HEPATITIS BE ANTIGEN [REFLAB] DAILYLAB 10/28/18 08:00 Echo Transthoracic Complete [ECHO] Routine 10/28/18 09:00 Polyethylene Glycol 3350 [Miralax] 17 gm PO DAILY 10/28/18 11:00 Nicotine 21 mg Patch [Nicoderm] 1 patch TOP DAILY 10/29/18 01:30 VANCOMYCIN TROUGH [CHEM] Timed 10/29/18 05:00 BMP - BASIC METABOLIC PANEL [CHEM] DAILYLAB CBC - COMP BLD CT W/AUTO DIFF [HEME] DAILYLAB Subjective - Subjective Patient Reports: Feeling Better Nursing Reports: Other (The RN on Day shift noticed that the patient's belongings said purse but no contents were described. The RN did look into the purse and found multiple syringes, needles, a spoon and other drug para phernailia (the purse was then apparently given to the [employer]).) Objective Vital Signs: Vital Signs - 24 hr 10/27/18 10/27/18 10/27/18 15:17 18:37 18:57 Temperature 36.8 C 36.4 C L 36.2 C L Heart Rate 106 H 102 H Heart Rate [ 99 Brachial] Respiratory 18 16 16 Rate Blood Pressure 134/92 H 128/77 Blood Pressure 125/72 [Right Brachial artery] O2 Saturation 100 100 100 10/28/18 10/28/18 10/28/18 00:00 01:50 08:00 Temperature 36.7 C 36.7 C 37.0 C Heart Rate 86 Heart Rate [ 86 101 H Brachial] Respiratory 16 16 18 Rate Blood Pressure Blood Pressure 137/80 H 135/76 H [Right Brachial artery] O2 Saturation 96 96 100 Oxygen O2 Source Room air I&O (Last 24 Hrs): Intake and Output Totals x24h 10/26/18 10/27/18 10/28/18 23:59 23:59 23:59 Intake Total 500 995 Balance 500 995 General: Alert, Oriented x3, Other (Flat affect) HEENT: Mucous membr. moist/pink Neck: Supple, No JVD Neuro: Non Focal Cardiovascular: Regular rate, No murmurs Respiratory: No respiratory distress, Breath sounds nml Abdomen: Soft Extremities: Other (Wrist bandaged in gauze, R side) - Results Results: Laboratory Results WBC 7.8 x10^3/uL (4.8-10.8) 10/28/18 04:50 RBC 4.82 10^6/uL (4.20-5.40) 10/28/18 04:50 Hgb 13.1 g/dL (12.0-16.0) 10/28/18 04:50 Hct 40.8 % (37.0-47.0) 10/28/18 04:50 MCV 84.6 fL (81.0-99.0) 10/28/18 04:50 MCH 27.3 pg (27.0-31.0) 10/28/18 04:50 MCHC 32.3 g/dL (32.0-36.0) 10/28/18 04:50 RDW 16.1 % (12.0-15.0) H 10/28/18 04:50 Plt Count 294 10^3/uL (130-450) 10/28/18 04:50 MPV 8.2 fL (7.9-10.8) 10/28/18 04:50 Neut # (Auto) 3.8 10^3/uL (1.5-6.6) 10/28/18 04:50 Lymph # (Auto) 3.0 10^3/uL (1.5-3.5) 10/28/18 04:50 [place] # (Auto) 0.6 10^3/uL (0.0-1.0) 10/28/18 04:50 Eos # (Auto) 0.4 10^3/uL (0.0-0.7) 10/28/18 04:50 Baso # (Auto) 0.1 10^3/uL (0.0-0.1) 10/28/18 04:50 Absolute Nucleated RBC 0.00 x10^3/uL 10/28/18 04:50 Nucleated RBC % 0.1 /100WBC 10/28/18 04:50 Sodium 138 mmol/L (135-145) 10/28/18 04:50 Potassium 4.2 mmol/L (3.5-5.0) 10/28/18 04:50 Chloride 105 mmol/L (101-111) 10/28/18 04:50 Carbon Dioxide 23 mmol/L (21-32) 10/28/18 04:50 Anion Gap 10.0 (6-13) 10/28/18 04:50 BUN 12 mg/dL (6-20) 10/28/18 04:50 Creatinine 0.6 mg/dL (0.4-1.0) 10/28/18 04:50 Estimated GFR (MDRD) 117 (>89) 10/28/18 04:50 Glucose 106 mg/dL (70-100) H 10/28/18 04:50 Lactic Acid 0.9 mmol/L (0.5-2.2) 10/27/18 17:40 Calcium 9.1 mg/dL (8.5-10.3) 10/28/18 04:50 Total Bilirubin 0.4 mg/dL (0.2-1.0) 10/27/18 17:40 AST 94 IU/L (10-42) H 10/27/18 17:40 ALT 451 IU/L (10-60) H 10/27/18 17:40 Alkaline Phosphatase 112 IU/L (42-121) 10/27/18 17:40 Total Protein 7.4 g/dL (6.7-8.2) 10/27/18 17:40 Albumin 3.4 g/dL (3.2-5.5) 10/27/18 17:40 Globulin 4.0 g/dL (2.1-4.2) 10/27/18 17:40 Albumin/Globulin Ratio 0.9 (1.0-2.2) L 10/27/18 17:40 Lipase 29 U/L (22-51) 10/27/18 17:40 Ur Specific [place] 1.015 (1.002-1.030) 10/27/18 15:32 Urine HCG, Qual NEGATIVE 10/27/18 15:32 Urine Opiates Screen NEGATIVE (NEGATIVE) 10/27/18 15:32 Ur Oxycodone Screen NEGATIVE (NEGATIVE) 10/27/18 15:32 Urine Methadone Screen NEGATIVE (NEGATIVE) 10/27/18 15:32 Ur Propoxyphene Screen NEGATIVE (NEGATIVE) 10/27/18 15:32 Ur Barbiturates Screen NEGATIVE (NEGATIVE) 10/27/18 15:32 Ur Tricyclics Screen NEGATIVE (NEGATIVE) 10/27/18 15:32 Ur Phencyclidine Scrn NEGATIVE (NEGATIVE) 10/27/18 15:32 Ur Amphetamine Screen POSITIVE (NEGATIVE) H 10/27/18 15:32 U Methamphetamines Scrn NEGATIVE (NEGATIVE) 10/27/18 15:32 U Benzodiazepines Scrn NEGATIVE (NEGATIVE) 10/27/18 15:32 Urine Cocaine Screen NEGATIVE (NEGATIVE) 10/27/18 15:32 U Cannabinoids Screen NEGATIVE (NEGATIVE) 10/27/18 15:32 - Procedures Procedures: Procedures DELIVERY OF PRODUCTS OF CONCEPTION, EXTERNAL APPROACH (01/13/16) DRAINAGE OF AMNIOTIC FL, THERAP FROM POC, VIA OPENING (01/13/16) REPAIR PERINEUM SKIN, EXTERNAL APPROACH (01/13/16)
[2018-10-28] MEDS ORDERED: NICOTINE 21 MG PATCH TOP SCH (11:00)
[2018-10-28 13:06] LABS: ALBUMIN 3.3 g/dL (3.2-5.5); BILIRUBIN,DIRECT 0.1 mg/dL (0.1-0.5); BILIRUBIN,TOTAL 0.5 mg/dL (0.2-1.0)
--- NOTE | 2018-10-28 13:38 | Discharge Plan ---
Discharge Plan Disposition: Against Medical Advice Condition: Poor Prescriptions: Clindamycin HCl [Clindamycin 300MG CAP] 300 mg PO BID #56 capsule Diet: Regular Instruction Topics: ED Abscess IandD, ED Staph Infec Abx Tx Only Additional Instructions or Follow Up instructions: You are being Discharge AGAINST MEDICAL ADVICE. You have a Staph aureus infection of a soft tissue abscess and cellulitis. Take the antibiotic prescribed for you twice a day for 4 weeks. Keep the wound clean and bandaged. You should make an appointment to see the [facility] doctor in 2-4 weeks. You should STOP using illegal drugs and stop iv drug injections. If you have new or worsening symptoms, see your PCP or come to the ER. No Smoking: If you smoke, Please STOP! Call for help. Follow-up with: Marcus Chavez PA-C [Primary Care Provider] -
--- NOTE | 2018-10-28 14:04 | DISCHARGE SUMMARY ---
Discharge Summary Admit Date: 10/27/18 Discharge Date: 10/28/18 Discharging Provider: Dilcia Arboleda MD Primary Care Provider: POLO Vega Code Status: Attempt Resuscitation Condition at Discharge: Poor Discharge Disposition: Against Medical Advice - DIAGNOSES Admission Diagnoses: 1) Wrist abscess. R 2) Arm cellulitis, R 3) Hx of MRSA skin abscesses 4) iv drug abuser 5) Elevated LFTs 6) Cigarette smoker Discharge Diagnoses with Status of Each Condition: (1) Staphylococcus aureus infection Assessment/Plan: Continuation with empiric iv Vanco for possible MRSA planned, then to be transitioned to oral antibiotics, after 48 hours of iv antibiotics and when the Staph sensitivities are available. An Echo was done and did not have evidence of endocarditis. The patient asked to be [facility] today and I explained the plan: awaiting culture results to decide on antibiotic choice. It appeared to me that she was amenable to stay until tomorrow, but later in the day she asked to sign out against medical advice, despite being told the dangers of spread of infection, sepsis, septic shock and . She did agree to take oral antibiotics, which were prescribed: Clindamycin 300 mg bid for 4 weeks. (2) Abscess, wrist Assessment/Plan: Dr Silvestre spoke to me after evaluating her. He advised 4 weeks of po antibiotics and an outpatient F/U to him in several weeks. He ordered the types of dressing changes she needs and the plan was to be to maty e the wick out the next day, and the wound will heal by secondary intention. (3) Cellulitis of arm, right Assessment/Plan: As in #1 (4) IV drug abuse Assessment/Plan: The RN showed me the patient's purse containing drug paraphernalia. The patient told the ER that she had not used iv drugs in 2 months, she did admit to me that she is currently still using drugs by injection. I offered to get her contacts regarding detox, and Social Work to step in, and she said she already has all the contacts and did not verbalize if she is planning to quit or not. (5) Elevetaed LFTs Hepatisitis B and C labs were ordered. They were still pending at the time she left AMA. There were no abdominal symptoms, and no abdominal imaging was done. (6) Tobacco dependence Assessment/Plan: Patient was having nicotine urges, Nicotine patch ordered. - HPI History of Present Illness: This is a 33-year-old white female with history of IV drug use, has a retained needle in the left antecubital area because of this, is a tobacco user, has had prior skin abscesses related to her injections, has had MRSA infections. She presented to the emergency room after 5 days of worsening swelling and pain of a "lump" over the dorsum of her right wrist. This was incised and drained in the emergency room and samples were sent for analysis, she required IV Dilaudid for pain relief and was admitted for management of pain and for iv antibiotics for the abscess, possible MRSA positive again. She did not have an elevated white blood count or fever but appeared in distress from pain related to the abscess and also was found to have cellulitis of the arm, from the elbow to the fingers on that same right side. - CONSULTS | PROCEDURES Consultations: Dr Silvestre (Ortho) Procedures: I and D of abscess in the ER, before admission - HOSPITAL COURSE Hospital Course: As above - ALLERGIES Allergies/Adverse Reactions: Allergies Allergy/AdvReac Type Severity Reaction Status Date / Time No Known Drug Allergies Allergy Verified 11/26/17 10:28 - MEDICATIONS Home Medications: Ambulatory Orders Medication Instructions Recorded Confirmed Clindamycin HCl [Clindamycin 300MG 300 mg PO BID #56 capsule 10/28/18 [facility]] - PHYSICAL EXAM AT DISCHARGE General Appearance: positive: No acute distress Eyes Bilateral: positive: Normal inspection Neck: positive: Nml inspection Respiratory: positive: No respiratory distress Cardiovascular: positive: Regular rate & rhythm, No murmur Abdomen: positive: No distention Extremities: positive: Other (Right wrist bandaged in gauze, the right arm is mildly swollen, not warm, mildly reddened from the elbow down to the fingertips) - LABS Result Diagrams: 10/28/18 04:50 10/28/18 04:50 - FOLLOW UP Follow Up: She was told to see her PCP for further management.
[2018-10-29 12:20] LABS: HEPATITIS A IGM NON-REACTIVE (NON-REACTIVE); HEPATITIS B CORE AB TOTAL NON-REACTIVE (NON-REACTIVE); HEPATITIS B CORE ANTIBODY IGM NON-REACTIVE (NON-REACTIVE); HEPATITIS B SURFACE ANTIGEN NON-REACTIVE (NON-REACTIVE); HEPATITIS C ANTIBODY REACTIVE (NON-REACTIVE)
[2018-10-31 17:25] LABS: HEPATITIS BE ANTIGEN NONREACTIVE
== END 2018-10-28 14:04 | disposition left against medical advice (07) | DRG 603 ==
LOC: ED 14:59 → MS2 16:45
PROVIDERS: ADMIT Internal Medicine; ATTEND Internal Medicine
DX: L02.413 Cutaneous abscess of right upper limb (principal); L03.113 Cellulitis of right upper limb; B95.61 Methicillin susceptible Staphylococcus aureus infection as the cause of diseases classified elsewhere; F15.10 Other stimulant abuse, uncomplicated; F17.210 Nicotine dependence, cigarettes, uncomplicated; Z53.20 Procedure and treatment not carried out because of patient's decision for unspecified reasons; Z18.10 Retained metal fragments, unspecified; Z86.14 Personal history of Methicillin resistant Staphylococcus aureus infection; Z90.49 Acquired absence of other specified parts of digestive tract
CPT/HCPCS: 10060; 36415; 80048; 80053; 80074; 80076; 80306; 81025; 83605; 83690; 85025; 86317; 86704; 87040; 87070; 87181; 87205; 87350; 93306; 96372; 99283; 99284; A9270; J1170; J2060; J3370

== ENCOUNTER 2019-06-07 21:22 | Emergency (ER) | payer MEDICAID ==
[2019-06-07 21:42] LABS: MUDS CUTOFF CONCENTRATIONS CUTOFF CONC BELOW:
[2019-06-07 21:47] LABS: BILIRUBIN,URINE NEGATIVE (NEGATIVE); GLUCOSE, URINE (UA) NEGATIVE (NEGATIVE); KETONES,URINE (UA) NEGATIVE (NEGATIVE); LEUKOCYTE ESTERASE, URINE NEGATIVE (NEGATIVE); NITRITE,URINE NEGATIVE (NEGATIVE); OCCULT BLOOD,URINE NEGATIVE (NEGATIVE); PROTEIN,URINE NEGATIVE (NEGATIVE); UROBILINOGEN,URINE 0.2 (NORMAL) E.U./dL (NORMAL)
[2019-06-07 21:48] LABS: CLARITY,URINE CLEAR (CLEAR); HCG UR QUAL NEGATIVE
[2019-06-07 21:56] LABS: AMPHETAMINE SCREEN,URINE POSITIVE (NEGATIVE); BENZODIAZEPINES SCREEN, URINE NEGATIVE (NEGATIVE); COCAINE SCREEN URINE NEGATIVE (NEGATIVE); METHADONE SCREEN, URINE NEGATIVE (NEGATIVE); METHAMPHETAMINES SCREEN, URINE POSITIVE (NEGATIVE); OPIATE SCREEN, URINE POSITIVE (NEGATIVE); OXYCODONE SCREEN, URINE NEGATIVE (NEGATIVE); PROPOXYPHENE SCREEN, URINE NEGATIVE (NEGATIVE); TRICYCLIC ANTIDEPRESSANT,URINE NEGATIVE (NEGATIVE)
[2019-06-07] MEDS ORDERED: HYDROmorphone 1 MG/ML CARPUJECT IM STA (21:56)
[2019-06-07] MEDS ORDERED: LORazepam 2 MG/ML VIAL IVP STA (21:56)
[2019-06-07] MEDS ORDERED: SULFAMETH/TRIMETH DS 800/160 MG TABLET PO STA (21:56)
[2019-06-07] MEDS ORDERED: BUFFERED LIDOCAINE 10 ML SYRINGE SUBQ STA (22:00)
--- NOTE | 2019-06-07 22:00 | ED Physician Documentation ---
PD HPI SKIN - Stated complaint Stated Complaint: RT ARM SWELLING/PX - Chief complaint Chief Complaint: Wound - History obtained from History obtained from: Patient - History of Present Illness Timing - onset: Other (33-year-old woman with history of IV drug use and recent relapse but only injects in the left arm is has a 4-day history of a painful abscess of the postero-medial right arm. She went to her doctors this morning who told her to come "immediately" to the emergency department, but there was a delay as she had some things to take care of. In the interim she did needle aspirate the abscess on her own. She denies systemic symptoms such as fevers or chills.) Review of Systems Constitutional: denies: Fever, Chills Nose: reports: Reviewed and negative Cardiac: reports: Reviewed and negative Respiratory: reports: Reviewed and negative PD PAST MEDICAL HISTORY - Past Medical History Cardiovascular: Murmur Respiratory: Pneumonia Neuro: None Endocrine/Autoimmune: None GI: None : None HEENT: None Psych: Anxiety Musculoskeletal: None Derm: None - Past Surgical History Past Surgical History: No General: Cholecystectomy - Present Medications Home Medications: Ambulatory Orders Medication Instructions Recorded Confirmed Albuterol Sulf [Ventolin Hfa 1 - 2 puffs INH Q4HR PRN #1 inhaler 06/07/19 Inhaler] Sulfamethoxazole/Trimethoprim 1 each PO BID 7 Days #20 tablet 06/07/19 [Sulfamethoxazole-Tmp Ds Tablet] - Allergies Allergies/Adverse Reactions: Allergies Allergy/AdvReac Type Severity Reaction Status Date / Time No Known Drug Allergies Allergy Verified 06/07/19 21:45 - Social History Does the pt smoke?: Yes Smoking Status: Current every day smoker Does the pt drink ETOH?: No Does the pt have substance abuse?: No - Immunizations Immunizations are current?: Yes - POLST Patient has POLST: No PD ED PE NORMAL - Vitals Vital signs reviewed: Yes - General General: Alert and oriented X 3, No acute distress - HEENT HEENT: PERRL, EOMI - Extremities Extremities: Other (There is a long shallow broad abscess over the proximal to mid ulna with a couple of draining spots and overlying cellulitis on the right. No limited range of motion or pain out of proportion to exam.) - Neuro Neuro: Alert and oriented X 3, Normal speech Results - Vitals Vitals: Vital Signs - 24 hr 06/07/19 06/07/19 21:41 22:41 Temperature 36.6 C Heart Rate 104 H 98 Respiratory 18 18 Rate Blood Pressure 146/81 H 134/78 H O2 Saturation 99 97 Oxygen O2 Source Room air - Labs Labs: Laboratory Tests 06/07/19 21:40 Urine Color YELLOW Urine Clarity CLEAR Urine pH 6.0 Ur Specific [place] >=1.030 H Urine Protein NEGATIVE Urine Glucose (UA) NEGATIVE Urine Ketones NEGATIVE Urine Occult Blood NEGATIVE Urine Nitrite NEGATIVE Urine Bilirubin NEGATIVE Urine Urobilinogen 0.2 (NORMAL) Ur Leukocyte Esterase NEGATIVE Ur Microscopic Review NOT INDICATED Urine Culture Comments NOT INDICATED Urine HCG, Qual NEGATIVE Urine Opiates Screen POSITIVE H Ur Oxycodone Screen NEGATIVE Urine Methadone Screen NEGATIVE Ur Propoxyphene Screen NEGATIVE Ur Barbiturates Screen NEGATIVE Ur Tricyclics Screen NEGATIVE Ur Phencyclidine Scrn NEGATIVE Ur Amphetamine Screen POSITIVE H U Methamphetamines Scrn POSITIVE H U Benzodiazepines Scrn NEGATIVE Urine Cocaine Screen NEGATIVE U Cannabinoids Screen NEGATIVE Procedures - Abscess I&D (location) R forearm abscess Preparation: Alcohol, Lidocaine 1% Incision: Incised with scalpel, Purulent drainage, Loculations broken, Packed (with 1/4" packing) Other: Pt tolerated well Departure - Departure Disposition: 01 Home, Self Care Clinical Impression: Abscess Condition: Good Record reviewed to determine appropriate education?: Yes Instructions: ED Abscess IandD Prescriptions: Albuterol Sulf [Ventolin Hfa Inhaler] 1 - 2 puffs INH Q4HR PRN #1 inhaler PRN Reason: Shortness Of Air/Wheezing Sulfamethoxazole/Trimethoprim [Sulfamethoxazole-Tmp Ds Tablet] 1 each PO BID 7 Days #20 tablet Comments: We are performing a wound culture, the results should be done in 48-72 hours. If antibiotic change is necessary we will call you. Return if worse in the meantime, especially if you develop increased pain, fevers, cannot keep down the medication. Otherwise follow-up with your physician in approximately 2-3 days. Remove the packing in 48 hours.
[2019-06-07] MEDS ORDERED: LORazepam 2 MG/ML VIAL IM STA (22:04)
[2019-06-07 22:43] VITALS: BP 134/78
== END 2019-06-07 23:06 | disposition home or self-care (01) ==
LOC: ED 21:22
DX: L02.413 Cutaneous abscess of right upper limb (principal); F17.200 Nicotine dependence, unspecified, uncomplicated
CPT/HCPCS: 10061; 80306; 81003; 81025; 87070; 87181; 87205; 96372; 99283; A9270; J1170; J2060; 81001; 87086

== ENCOUNTER 2019-07-30 11:10 | Emergency (ER) | payer MEDICAID ==
[2019-07-30] MEDS ORDERED: HYDROcod/ACETAM 5/325 MG TABLET PO STA (11:55)
[2019-07-30] MEDS ORDERED: BUFFERED LIDOCAINE 10 ML SYRINGE SUBQ STA (11:55)
--- NOTE | 2019-07-30 12:54 | ED Physician Documentation ---
PD HPI SKIN - Stated complaint Stated Complaint: L ARM WOUND - Chief complaint Chief Complaint: Wound - History obtained from History obtained from: Patient - History of Present Illness Timing - onset: How many days ago (5) Timing - duration: Days (5) Timing - details: Gradual onset, Still present Location: LUE Quality / character: Painful, Discolored, Swelling, Draining Contributing factors: Other (IVDA) Similar symptoms before: Diagnosis (abscess) Recently seen: Not recently seen - Additional information Additional information: 33-year-old female with history of IV drug abuse has developed abscesses in her left forearm. She has 3 separate areas that over the past 5 days have begin to increase in their size painfulness and swelling. She has drained the most distal of these with a needle and she was not able to drain the other 2. She is not having systemic symptoms. She has had this a number of times previously. She did start on some 2 days ago. Her last culture grew a staph that was sensitive. Review of Systems Constitutional: denies: Fever Eyes: denies: Decreased vision Ears: denies: Ear pain Nose: denies: Congestion Throat: denies: Sore throat Respiratory: denies: Dyspnea, Cough GI: denies: Vomiting PD PAST MEDICAL HISTORY - Past Medical History Cardiovascular: Murmur Respiratory: Pneumonia Neuro: None Endocrine/Autoimmune: None GI: None HIGHBALLER: None : None HEENT: None Psych: Anxiety Musculoskeletal: None Derm: None - Past Surgical History Past Surgical History: No General: Cholecystectomy - Present Medications Home Medications: Ambulatory Orders Medication Instructions Recorded Confirmed Albuterol Sulf [Ventolin Hfa 1 - 2 puffs INH Q4HR PRN #1 inhaler 06/07/19 Inhaler] Sulfamethoxazole/Trimethoprim 1 each PO BID 7 Days #20 tablet 06/07/19 [Sulfamethoxazole-Tmp Ds Tablet] Doxycycline Hyclate 100 mg PO BID #20 capsule 07/30/19 - Allergies Allergies/Adverse Reactions: Allergies Allergy/AdvReac Type Severity Reaction Status Date / Time No Known Drug Allergies Allergy Verified 06/07/19 21:45 - Social History Does the pt smoke?: Yes Smoking Status: Current every day smoker Does the pt drink ETOH?: No Does the pt have substance abuse?: Yes Substance Use and Type: Heroin - Immunizations Immunizations are current?: Yes - POLST Patient has POLST: No PD ED PE NORMAL - Vitals Vital signs reviewed: Yes (Tachycardic and hypertensive) - General General: Alert and oriented X 3, No acute distress, Well developed/nourished - HEENT HEENT: Atraumatic, PERRL - Respiratory Respiratory: No respiratory distress - Derm Derm: Normal color, Warm and dry - Extremities Extremities: Other (The left forearm is markedly swollen in 3 separate areas 1 in the antecubital 1 on the volar surface and 1 on the dorsal surface. The dorsal surface is proximal the volar surface is distal and the patient has partially drained 1 of the abscesses distally. The distal neurovascular components are intact. There is no lymphangitic streaking from any of the abscesses.) - Neuro Neuro: Alert and oriented X 3, No motor deficit, No sensory deficit, Normal speech Eye Opening: Spontaneous Motor: Obeys Commands Verbal: Oriented GCS Score: 15 - Psych Psych: Normal mood, Normal affect Results - Vitals Vitals: Vital Signs - 24 hr 07/30/19 11:36 Temperature 37.2 C Heart Rate 126 H Respiratory 18 Rate Blood Pressure 141/83 H O2 Saturation 97 Oxygen O2 Source Room air PD MEDICAL DECISION MAKING - ED course Complexity details: reviewed old records, reviewed results, re-evaluated patient, considered differential, d/w patient ED course: 33-year-old female with history of intravenous drug abuse has multiple abscesses to the left forearm these were incised and drained with great pain to the patient. The abscess cavities are irrigated with saline and packed with half- inch gauze. She complains of the septra causing some stomach upset. Her prior cultures including MRSA samples were sensitive to tetracycline and we will place her on some doxy. Departure - Departure Disposition: 01 Home, Self Care Clinical Impression: Abscess Condition: Stable Instructions: ED Abscess IandD Follow-Up: Marcus Chavez PA-C [Primary Care Provider] - Prescriptions: Doxycycline Hyclate 100 mg PO BID #20 capsule Comments: You will need to remove 1 1/2 to 2 inches of packing per day beginning the day after tomorrow.
[2019-07-30 13:29] VITALS: BP 139/76
== END 2019-07-30 13:35 | disposition home or self-care (01) ==
LOC: ED 11:10
DX: L02.414 Cutaneous abscess of left upper limb (principal); F11.10 Opioid abuse, uncomplicated; F17.200 Nicotine dependence, unspecified, uncomplicated
CPT/HCPCS: 10061; 87070; 87181; 87205; 99283; 99284; A9270

== ENCOUNTER 2020-01-10 19:44 | Outpatient (CLI) | payer MEDICAID ==
--- NOTE | 2020-01-10 20:35 | Ultrasound Report ---
PROCEDURE: OB First Trimester INDICATIONS: POSITIVE OUTSIDE/PRIOR DATING DATA: Last menstrual period (LMP): Unknown. LMP-based estimated date of delivery (ZAHEER): Unknown. First dating scan (date and location): 01/10/2020. Estimated date of delivery (ZAHEER) from first dating scan: 08/19/2020. TECHNIQUE: Real-time scanning was performed of the fetus and maternal pelvic organs, with image documentation. COMPARISON: None FINDINGS: Embryo: Single intrauterine gestational sac is seen with fetus and yolk sac seen. heart rate i s 163 bpm. [place]-rump length measures 1.8 cm. Estimated gestational age based on current study is 8 w eeks 2 days. No subchorionic hematoma is noted. Measurement variability in dating: +/- 4 weeks by LMP, +/- 7 days by mean sac diameter (use before 6 weeks gestation if crown-rump length not able to be measured), +/- 5 days by crown-rump length (6-12 weeks gestation). Maternal organs: Dominant follicle is noted in right ovary measures 1.8 x 1.4 x 1.8 cm in size. 2.1 x 1.2 x 1.6 cm corpus luteal cyst is noted in left ovary. Limited images through the kidneys demonstra te no hydronephrosis. IMPRESSION: 1. Single live intrauterine with fetus and yolk sac seen. heart rate is 163 bpm. Jen mated gestational age is 8 weeks 2 days. 2. Dominant follicle in right ovary. Corpus luteal cyst in left ovary as above. Reviewed by: Tyler Arevalo MD on 01/10/2020 8:33 PM PDT Approved by: Tyler Arevalo MD on 01/10/2020 8:33 PM PDT Station ID: [id number]
== END 2020-01-10 19:45 | disposition home or self-care (01) ==
LOC: DI 19:44
PROVIDERS: ATTEND Advanced Practice Midwife
DX: O34.81 Maternal care for other abnormalities of pelvic organs, first trimester (principal); N83.12 Corpus luteum cyst of left ovary; O99.89 Other specified diseases and conditions complicating pregnancy, childbirth and the puerperium; N83.01 Follicular cyst of right ovary; Z3A.08 8 weeks gestation of pregnancy
CPT/HCPCS: 76801; 76817

== ENCOUNTER 2020-02-06 12:43 | Observation (INO) | payer MEDICAID ==
[2020-02-06] MEDS ORDERED: SODIUM CHLORIDE 0.9% 1,000 ML IV STA ×2 (13:18→16:32)
[2020-02-06] MEDS ORDERED: KETOROLAC 30 MG/ML VIAL IVP STA (13:18)
--- NOTE | 2020-02-06 13:22 | ED Physician Documentation ---
PD HPI ABD PAIN - Stated complaint Stated Complaint: SOA/PX IN BACK - History obtained from History obtained from: Patient - History of Present Illness Timing - onset: Today Timing - duration: Hours Timing - details: Abrupt onset, Still present Quality: Sharp, Pain Location: RUQ Radiation: Right flank Improved by: Other (nothing) Worsened by: Other (everything) Associated symptoms: Nausea, Vomiting. No: Hematemesis, Diarrhea, Constipation Similar symptoms before: Has not had sx before Recently seen: Surgery - Additional information Additional information: 34-year-old female with history of IV drug abuse has developed acute right flank pain today and she comes into the emergency department with hysterical pain behavior. She has had a recent therapeutic and was recovering from that well and she indicates that she has not been ill prior to this. The pain is severe acute in onset and unrelenting.After the patient's pain is treated she is able to give further history indicating that she had a therapeutic done at [facility] in [place] 1 week ago. She states that initially she did not have much bleeding and then began to develop bleeding and she is now having significant bleeding and cramping. She was in court today when her pain in her back became significantly and acutely much worse. She is coming to the emergency department with severe back pain. Review of Systems Constitutional: denies: Fever Eyes: denies: Decreased vision Ears: denies: Ear pain Nose: denies: Rhinorrhea / runny nose, Congestion Throat: denies: Sore throat Cardiac: denies: Chest pain / pressure Respiratory: denies: Dyspnea, Cough GI: reports: Abdominal Pain, Nausea, Vomiting : denies: Dysuria, Frequency Skin: denies: Rash, Lesions Musculoskeletal: reports: Back pain. denies: Neck pain, Extremity pain Neurologic: denies: Generalized weakness, Focal weakness, Numbness PD PAST MEDICAL HISTORY - Past Medical History Cardiovascular: Murmur Respiratory: Pneumonia Neuro: None Endocrine/Autoimmune: None GI: None RATING CLERK: None : None HEENT: None Psych: Anxiety Musculoskeletal: None Derm: None - Past Surgical History Past Surgical History: No General: Cholecystectomy - Present Medications Home Medications: Ambulatory Orders Medication Instructions Recorded Confirmed Albuterol Sulf [Ventolin Hfa 1 - 2 puffs INH Q4HR PRN #1 inhaler 06/07/19 Inhaler] Sulfamethoxazole/Trimethoprim 1 each PO BID 7 Days #20 tablet 06/07/19 [Sulfamethoxazole-Tmp Ds Tablet] Doxycycline Hyclate 100 mg PO BID #20 capsule 07/30/19 - Allergies Allergies/Adverse Reactions: Allergies Allergy/AdvReac Type Severity Reaction Status Date / Time No Known Drug Allergies Allergy Verified 06/07/19 21:45 - Social History Does the pt smoke?: Yes Smoking Status: Current every day smoker Does the pt drink ETOH?: No Does the pt have substance abuse?: Yes - Immunizations Immunizations are current?: Yes - POLST Patient has POLST: No PD ED PE NORMAL - Vitals Vital signs reviewed: Yes (tachy and hypertensive ) - General General: Alert and oriented X 3, Well developed/nourished, Other (34-year-old female with hysterical pain behavior is writhing on the gurney crying in pain asking for help) - HEENT HEENT: Atraumatic, PERRL, EOMI - Neck Neck: Supple, no meningeal sign, No bony TTP - Cardiac Cardiac: No murmur, Other (tachy to 140) - Respiratory Respiratory: No respiratory distress, Clear bilaterally - Abdomen Abdomen: Normal bowel sounds, Soft, Non distended, No organomegaly, Other (Tenderness is not reproducible. Reported by patient hysterically.) - Back Back: No spinal TTP, Other (TTP right CVA) - Derm Derm: Normal color, Warm and dry, No rash - Extremities Extremities: No deformity, No edema - Psych Psych: Normal mood, Normal affect Results - Vitals Vitals: Vital Signs - 24 hr 02/06/20 02/06/20 02/06/20 13:15 13:21 13:59 Temperature 37.1 C 37.1 C Heart Rate 137 H 122 H 116 H Respiratory 21 24 17 Rate Blood Pressure 147/85 H 118/97 H 118/82 H O2 Saturation 100 99 100 02/06/20 02/06/20 02/06/20 14:55 16:44 18:00 Temperature 36.8 C 36.6 C Heart Rate 126 H 119 H 118 H Respiratory 16 13 16 Rate Blood Pressure 119/71 117/74 105/69 O2 Saturation 100 100 98 Oxygen O2 Source Room air - EKG (time done) 1302 Rate: Rate (enter#) (145) Rhythm: Sinus tachycardia Phelps: LAD Intervals: Prolonged QT (borderline) Ischemia: ST depression (borderline lateral ) Compare to prior EKG: Old EKG unavailable Computer interpretation: Agree with computer - Labs Labs: Laboratory Tests 02/06/20 02/06/20 02/06/20 13:13 13:13 13:13 WBC 1.5 L* RBC 4.21 Hgb 12.2 Hct 37.7 MCV 89.5 MCH 29.0 MCHC 32.4 RDW 14.0 Plt Count 209 MPV 9.2 Neut # (Auto) Not Reportable Lymph # (Auto) Not Reportable [place] # (Auto) Not Reportable Eos # (Auto) Not Reportable Baso # (Auto) Not Reportable Absolute Nucleated RBC Not Reportable Total Counted 100 Band Neuts % (Manual) 5 Abnorm Lymph % (Manual) 0 Nucleated RBC % Not Reportable Neutrophils # (Manual) 0.9 L Lymphocytes # (Manual) 0.6 L Monocytes # (Manual) 0.0 Eosinophils # (Manual) 0.0 Basophils # (Manual) 0.0 Differential Comment MANUAL DIFFERENTIAL WBC Morphology 1+ VACUOLATION Platelet Estimate NORMAL (130-450,000) Platelet Morphology NORMAL APPEARANCE RBC Morph Micro Appear NORMAL APPEARANCE ESR 22 H Sodium 138 Potassium 3.2 L Chloride 103 Carbon Dioxide 21 Anion Gap 14.0 H BUN 11 Creatinine 1.2 H Estimated GFR (MDRD) 52 L Glucose 96 Calcium 8.9 Total Bilirubin 0.7 AST 19 ALT 15 Alkaline Phosphatase 73 Total Protein 7.3 Albumin 3.9 Globulin 3.4 Albumin/Globulin Ratio 1.1 Lipase 23 HCG, Quant Urine Color Urine Clarity Urine pH Ur Specific [place] Urine Protein Urine Glucose (UA) Urine Ketones Urine Occult Blood Urine Nitrite Urine Bilirubin Urine Urobilinogen Ur Leukocyte Esterase Urine RBC Urine WBC Ur Squamous Epith Cells Urine Bacteria Ur Microscopic Review Urine Culture Comments 02/06/20 02/06/20 15:07 15:07 WBC RBC Hgb Hct MCV MCH MCHC RDW Plt Count MPV Neut # (Auto) Lymph # (Auto) [place] # (Auto) Eos # (Auto) Baso # (Auto) Absolute Nucleated RBC Total Counted Band Neuts % (Manual) Abnorm Lymph % (Manual) Nucleated RBC % Neutrophils # (Manual) Lymphocytes # (Manual) Monocytes # (Manual) Eosinophils # (Manual) Basophils # (Manual) Differential Comment WBC Morphology Platelet Estimate Platelet Morphology RBC Morph Micro Appear ESR Sodium Potassium Chloride Carbon Dioxide Anion Gap BUN Creatinine Estimated GFR (MDRD) Glucose Calcium Total Bilirubin AST ALT Alkaline Phosphatase Total Protein Albumin Globulin Albumin/Globulin Ratio Lipase HCG, Quant 262.83 Urine Color YELLOW Urine Clarity CLEAR Urine pH 6.5 Ur Specific [place] 1.025 Urine Protein >=300 H Urine Glucose (UA) NEGATIVE Urine Ketones NEGATIVE Urine Occult Blood MODERATE H Urine Nitrite NEGATIVE Urine Bilirubin NEGATIVE Urine Urobilinogen 0.2 (NORMAL) Ur Leukocyte Esterase NEGATIVE Urine RBC 0-5 Urine WBC 0-3 Ur Squamous Epith Cells FEW Squamous Urine Bacteria Few Ur Microscopic Review INDICATED Urine Culture Comments NOT INDICATED - Rads (name of study) u/s pelvis Radiology: Prelim report reviewed (Impression: 1. Large quantity of avascular heterogeneous material filling the endometrium, most likely clot, less likely retained products of conception. No evidence of hemorrhage or free fluid in the pelvis. Normal ovaries.), EMP read indepedently, See rad report CT ab/pelw/o Radiology: Prelim report reviewed (Impression: Moderate volume intermediate density free pelvic fluid. This is of unknown clinical significance.), EMP read indepedently, See rad report Procedures - Bedside sono Bedside sono by EMP: With use of bedside ultrasound the right kidney is imaged there is obvious hydronephrosis. And I am unable to discern whether this area is actually tender or just the area of pain. PD MEDICAL DECISION MAKING - ED course Complexity details: reviewed old records, reviewed results, re-evaluated patient, considered differential, d/w patient ED course: 34-year-old female with acute right flank pain appears acutely in pain and she has obvious hydronephrosis on bedside ultrasound examination of the right kidney. Her course is consistent with an acute right ureteral lithiasis and an IV is begun she is given intravenous saline Toradol and Zofran and a CT scan of the abdomen pelvis is obtained. The patient has good relief of her pain with toradal and saline. The CT does not demonstrate any evidence of hydro or stone and there is concern for free fluid in the pelvis and this is followed up with a pelvic ultrasound showing uterine abnormality. Dr. Sandoval is consulted in the case and graciously comes to the ED to evaluate the patient. Dr. Sandoval will take the patient into the operating room to remove contents of the pelvis and he has placed the patient on cefepime and doxycycline intravenously for presumed septic retained products of conception. Departure - Departure Disposition: ED Transfer to [facility] Clinical Impression: Retained products of conception following
[2020-02-06 13:23] LABS: HGB - HEMOGLOBIN 12.2 g/dL (12.0-16.0); LYMPHOCYTES % (AUTO) 28.7 %; MEAN CORPUSCULAR HGB CONC 32.4 g/dL (32.0-36.0); MEAN CORPUSCULAR VOLUME 89.5 fL (81.0-99.0); MEAN PLATELET VOLUME 9.2 fL (7.9-10.8); MONOCYTES % (AUTO) 0.7 %; NEUTROPHILS % (AUTO) 69.9 %; PLT - PLATELET COUNT 209 10^3/uL (130-450); RED BLOOD COUNT 4.21 10^6/uL (4.20-5.40)
[2020-02-06 13:25] LABS: WHITE BLOOD COUNT 1.5 x10^3/uL (4.8-10.8)
[2020-02-06] MEDS ORDERED: ONDANSETRON 4 MG/2 ML VIAL IVP STA (13:25)
[2020-02-06 13:26] LABS: ABNORMAL LYMPHS % (MANUAL) 0 %
[2020-02-06 13:33] LABS: ALBUMIN 3.9 g/dL (3.2-5.5); ALBUMIN/GLOBULIN RATIO 1.1 (1.0-2.2); BILIRUBIN,TOTAL 0.7 mg/dL (0.2-1.0); CALCIUM 8.9 mg/dL (8.5-10.3); CREATININE 1.2 mg/dL (0.4-1.0); TOTAL PROTEIN 7.3 g/dL (6.7-8.2)
[2020-02-06 14:03] LABS: BAND NEUTROPHILS % (MANUAL) 5 %; BASOPHILS % (MANUAL) 1 %; LYMPHOCYTES # (MANUAL) 0.6 10^3/uL (1.5-3.5); LYMPHOCYTES % (MANUAL) 37 %
[2020-02-06 14:04] LABS: PLATELET ESTIMATE, MANUAL NORMAL (130-450,000) (NORMAL); PLATELET MORPHOLOGY NORMAL APPEARANCE (NORMAL); RBC MORPHOLOGY (MULTIPLE) NORMAL APPEARANCE (NORMAL)
--- NOTE | 2020-02-06 14:04 | CT Report ---
PROCEDURE: Abdomen/Pelvis WO INDICATIONS: R flank pain TECHNIQUE: Noncontrast 5 mm thick sections acquired from the diaphragms to the symphysis. 5 mm coronal and sagi ttal reformats were then performed. For radiation dose reduction, the following was used: automated exposure control, adjustment of mA and/or kV according to patient size. COMPARISON: None. FINDINGS: Image quality: Excellent. ABDOMEN: Lung bases: Lung bases are clear. Heart size is normal. Solid organs: The lack of IV contrast limits evaluation of the solid abdominal viscera. Within this limitation, the liver, spleen, gallbladder, pancreas, adrenal glands, and kidneys are within normal l imits. There is no urinary tract calculus or hydroureteronephrosis. Peritoneum and bowel: Unenhanced bowel loops demonstrate normal wall thickness and caliber. No free fluid or air. Nodes and vessels: No retroperitoneal or mesenteric adenopathy by size criteria. Aorta and inferior vena cava are normal in caliber. Miscellaneous: No ventral hernias. PELVIS: Genitourinary: Bladder wall thickness is normal. Moderate volume free pelvic fluid of intermediate density. Grossly unremarkable unenhanced uterus and adnexa, evaluation limited by the lack of IV cont rast. Miscellaneous: No structural enlarged pelvic or inguinal lymph nodes. No inguinal hernia. Bones: No suspicious bony lesions. No vertebral body compression fractures. IMPRESSION: Moderate volume intermediate density free pelvic fluid. This is of unknown clinical significance. Reviewed by: Anthony Espinosa MD on 02/06/2020 2:03 PM PDT Approved by: Anthony Espinosa MD on 02/06/2020 2:03 PM PDT Station ID: [id number]
[2020-02-06 14:05] LABS: DIFFERENTIAL COMMENT MANUAL DIFFERENTIAL
[2020-02-06 15:16] LABS: BILIRUBIN,URINE NEGATIVE (NEGATIVE); GLUCOSE, URINE (UA) NEGATIVE (NEGATIVE); KETONES,URINE (UA) NEGATIVE (NEGATIVE); LEUKOCYTE ESTERASE, URINE NEGATIVE (NEGATIVE); NITRITE,URINE NEGATIVE (NEGATIVE); OCCULT BLOOD,URINE MODERATE (NEGATIVE); PH,URINE 6.5 PH (5.0-7.5); PROTEIN,URINE >=300 mg/dL (NEGATIVE); UROBILINOGEN,URINE 0.2 (NORMAL) E.U./dL (NORMAL)
[2020-02-06 15:17] LABS: CLARITY,URINE CLEAR (CLEAR)
[2020-02-06 15:24] LABS: BACTERIA,URINE Few /HPF (None Seen); RBC,URINE 0-5 /HPF (0-5); SQUAMOUS EPITHELIAL CELL,UR FEW Squamous (<= Few)
--- NOTE | 2020-02-06 17:01 | Ultrasound Report ---
PROCEDURE: Pelvic w/Transvaginal INDICATIONS: S/P TAB, RT FLANK PAIN, FF ON CT TECHNIQUE: Real-time scanning was performed of the pelvic organs, with image documentation. Additional endovagi nal scanning was necessary due to incomplete visualization of the adnexal and endometrial structures by transabdominal scanning. COMPARISON: Correlation made to CT scan performed the same day. FINDINGS: Transabdominal scanning: Limited scanning through the kidneys shows no hydronephrosis. No nephrolit hiasis. No pathologic free abdominal or pelvic fluid. Endovaginal scanning: Uterus: Uterus is retroverted and mildly enlarged measuring 13.2 x 6.4 x 8.2 cm. The endometrial can al is distended with avascular, hypoechoic material with irregular heterogeneous hyperechoic echoes. This area measures 7.4 x 4.9 x 7.3 cm for a volume of about 138 cc. The margins of the endometrium ar e well-defined. No myometrial mass. Ovaries: The right ovary measures 3.5 x 2.1 x 1.8 cm. The left ovary measures 3.3 x 1.4 x 2.3 cm. Marcel th ovaries have a normal echotexture without dominant follicle. There is no free fluid in the pelvis or suspicious adnexal mass. IMPRESSION: 1. Large quantity of avascular heterogeneous material filling the endometrium, most likely clot, less likely retained products of conception. 2. No evidence of hemorrhage or free fluid in the pelvis. 3. Normal ovaries. 4. Discussed with Dr. Sandoval at 1650 hours. Reviewed by: Sherita Bustos MD on 02/06/2020 5:00 PM PDT Approved by: Sherita Bustos MD on 02/06/2020 5:00 PM PDT Station ID: [id number]
[2020-02-06] MEDS ORDERED: CEFOTETAN DISODIUM 2 GM in SODIUM CHLORIDE 0.9% MINIBAG 100 ML IV STA (17:37)
[2020-02-06] MEDS ORDERED: DOXYCYCLINE INJ 100 MG in SODIUM CHLORIDE 0.9% MINIBAG 100 ML IV STA (17:38)
[2020-02-06] MEDS ORDERED: HYDROmorphone 1 MG/ML CARPUJECT IVP STA (17:42)
[2020-02-06] MEDS ORDERED: ONDANSETRON 4 MG/2 ML VIAL IVP ONE (18:30)
[2020-02-06] MEDS ORDERED: PROPOFOL 200 MG/20 ML VIAL IVP ONE (18:30)
[2020-02-06] MEDS ORDERED: fentaNYL 100 MCG/2 ML VIAL IVP ONE (18:30)
[2020-02-06] MEDS ORDERED: PHENYLEPHRINE 10 MG/ML VIAL IV ONE (18:30)
[2020-02-06] MEDS ORDERED: LIDOCAINE-MPF 2% 5 ML VIAL IM ONE (18:30)
[2020-02-06] MEDS ORDERED: DEXAMETHASONE 4 MG/ML VIAL IVP ONE (18:30)
[2020-02-06 18:31] LABS: BASOPHILS % (AUTO) 0.1 %; EOSINOPHILS % (AUTO) 0.1 %; HGB - HEMOGLOBIN 9.9 g/dL (12.0-16.0); LYMPHOCYTES # (AUTO) 0.3 10^3/uL (1.5-3.5); LYMPHOCYTES % (AUTO) 3.3 %; MEAN CORPUSCULAR HEMOGLOBIN 29.1 pg (27.0-31.0); MEAN CORPUSCULAR HGB CONC 32.9 g/dL (32.0-36.0); MEAN CORPUSCULAR VOLUME 88.5 fL (81.0-99.0); MEAN PLATELET VOLUME 9.6 fL (7.9-10.8); MONOCYTES % (AUTO) 0.4 %; NEUTROPHILS # (AUTO) 7.5 10^3/uL (1.5-6.6); NEUTROPHILS % (AUTO) 95.7 %; PLT - PLATELET COUNT 148 10^3/uL (130-450); WHITE BLOOD COUNT 7.9 x10^3/uL (4.8-10.8)
[2020-02-06] MEDS ORDERED: CARBOPROST TROMETHAMINE 250 MCG/ML AMP IM ONE (19:25)
[2020-02-06] MEDS ORDERED: METHYLERGONOVINE 0.2 MG/ML VIAL ONE (19:26)
[2020-02-06] MEDS ORDERED: BUPIVACAINE 0.25%-EPI 1:200000 PF 30 ML VIAL ONE (19:27)
[2020-02-06] MEDS ORDERED: LACTATED RINGERS 1,000 ML IV ONE (19:45)
--- NOTE | 2020-02-06 19:50 | OPERATIVE REPORT ---
Operative Report - General Procedure Date: 02/06/20 Planned Procedure: SHARP AND SUCTION D&C Pre-Op Diagnosis: ENDOMYOMETRITIS WITH RETAINED TISSUE Procedure Performed: SHARP AND SUCTION D&C Post Op Diagnosis: SAME - Procedure Note Primary Surgeon: Giles Sandoval MD Anesthesia Provider: Brock Hauser MD Anesthesia Technique: General LMA, Other (Paracervical) IV Fluids (mL): 600 Estimated Blood Loss (mL): 140
--- NOTE | 2020-02-06 19:51 | PREOP HISTORY & PHYSICAL ---
DATE OF SERVICE: 02/06/2020 Physician: Giles Sandoval MD IDENTIFICATION: A 34-year-old G3, P1 female who recently had a termination roughly 1 week ago. CHIEF COMPLAINT: Pelvic pain. HISTORY OF PRESENT ILLNESS: Patient states at 11 o'clock this morning she developed sharp, pelvic pa in. This pain was in the lower pelvis. She did have some radiation to ribs. She states 2 days ago, she had some chills and fevers, but these resolved. She also states that she has been having heavy bleeding, needing to change a pad or tampon on an hourly basis. She had an appointment for 1300 toda y. She does not have any history of any low platelets at this particular time. She was 11 weeks 2 d ays EGA when she had her termination performed. She describes this as being done with an instrument in [place]. PAST MEDICAL HISTORY: Patient denies any hypertensive, diabetic or cardiac disease. She does have a history of having IV drug abuse. She states she has been clean for the last 28 days. PAST SURGICAL HISTORY: Patient denies a history of any surgery. ALLERGIES: NONE KNOWN. CURRENT MEDICATIONS: Tylenol. HABITS: Patient smokes 6 cigarettes per day. She states she has been clean for the last 28 days. P rior to this, she was using heroin 3 times per day. She denies use of alcohol. SOCIAL HISTORY: Patient is unemployed at this particular time. PHYSICAL EXAMINATION GENERAL: Patient is well-developed, well-nourished white female. She is in significant pain at this time. She is crying, but is able to communicate well verbally. VITAL SIGNS: Temperature 36.8, pulse 119, blood pressure 117/74, respirations are 16. HEENT: Pupils are equal, round. Extraocular muscles are intact. Mouth is clear. HEART: Regular rate and rhythm, distant. LUNGS: Lung zamora are clear also. ABDOMEN: Without scars. There is tenderness particularly in the suprapubic area. There is evidence of bowel sounds. BACK: There is tenderness in the sacral area. No CVA tenderness noted at this particular time. PELVIC: Normal external genitalia without lesions. Vaginal vault shows dark red blood, without evid ence of any active bleeding from the cervix. Cultures were taken. Internal examination showed a edmond y tender uterus. It duplicated the pain she is complaining of. IMAGING: Patient's CAT scan showed evidence of an enlarged uterus. Ultrasound was reviewed with the radiologist showed evidence of tissue or blood in the uterine cavity. This is roughly 7 cm x 6 cm i n diameter. This calculates out to about a volume of roughly 138 mL. The appendix does not appear t o show evidence of any disease. LABORATORIES: CBC shows a white count of 5.7, hemoglobin 12.2, hematocrit of 37.7, platelets were 20 9. Chemistry: Potassium is 3.2. Her creatinine is 1.2. Her quant hCG is 262. Urine is positive for protein, moderate for occult blood, RBCs, WBCs negative, few squamous epithelial cells. IMPRESSION: Patient appears to have septic retained products of conception versus clot, and a low wh ite count. We will repeat the CBC. PLAN: We will take patient for D and C. We will also administer patient cefotetan 2 grams, doxycycl ine 100 mg, both IV. Risks and benefits have been explained to patient, including those, but not parks ited to bleeding, infection, injury to pelvic organs. She is aware of the potential for DVT with PE. She is also aware that about the possibility of bleeding. TD: 02/06/2020 18:06
[2020-02-06] MEDS ORDERED: ePHEDrine 50 MG/ML VIAL IVP PRN (19:53)
[2020-02-06] MEDS ORDERED: diphenhydrAMINE INJ 50 MG/ML VIAL IVP PRN (19:53)
[2020-02-06] MEDS ORDERED: NALOXONE 0.4 MG/ML VIAL IVP PRN (19:53)
[2020-02-06] MEDS ORDERED: fentaNYL 100 MCG/2 ML VIAL IVP PRN (19:53)
[2020-02-06] MEDS ORDERED: METOCLOPRAMIDE 10 MG/2 ML VIAL IVP PRN (19:53)
[2020-02-06] MEDS ORDERED: ACETAMINOPHEN 1,000 MG/100 ML 100 ML IV ONE (19:53)
[2020-02-06] MEDS ORDERED: ATROPINE ABBOJECT 1 MG/10 ML SYRINGE IVP PRN (19:53)
[2020-02-06] MEDS ORDERED: ONDANSETRON 4 MG/2 ML VIAL IVP PRN ×2 (19:53→19:56)
[2020-02-06] MEDS ORDERED: HYDROmorphone 0.5 MG/0.5 ML SYRINGE IVP PRN (19:53)
[2020-02-06] MEDS ORDERED: MORPHINE 2 MG/ML CARPUJECT IVP PRN (19:53)
[2020-02-06] MEDS ORDERED: oxyCODONE 5 MG TABLET PO PRN (19:56)
--- NOTE | 2020-02-06 19:56 | ANESTHESIA ---
Pre-Anesthesia VS, & Labs - Diagnosis Retained intrauterine clot - Procedure dilation and curettage Vital Signs: Temp Pulse Resp BP Pulse Ox 36.9 C 105 H 20 110/73 98 02/06/20 19:50 02/06/20 19:50 02/06/20 19:50 02/06/20 19:50 02/06/20 19:50 Height: 5 ft 7 in Weight (kg): 77.111 kg Body Mass Index: 26.6 BMI Classification: Overweight - NPO >8 hours - Is Patient ?: No - Lab Results Current Lab Results: Laboratory Tests 02/06/20 18:21: WBC 7.9, RBC 3.40 L, Hgb 9.9 L, Hct 30.1 L, MCV 88.5, MCH 29.1, MCHC 32.9, RDW 14.0, Plt Count 148, MPV 9.6, Neut # (Auto) 7.5 H, Lymph # (Auto) 0.3 L, [place] # (Auto) 0.0, Eos # (Auto) 0.0, Baso # (Auto) 0.0, Absolute Nucleated RBC 0.00, Nucleated RBC % 0.0 02/06/20 15:07: HCG, Quant 262.83 02/06/20 13:13: ESR 22 H 02/06/20 13:13: Sodium 138, Potassium 3.2 L, Chloride 103, Carbon Dioxide 21, Anion Gap 14.0 H, BUN 11, Creatinine 1.2 H, Estimated GFR (MDRD) 52 L, Glucose 96, Calcium 8.9, Total Bilirubin 0.7, AST 19, ALT 15, Alkaline Phosphatase 73, Total Protein 7.3, Albumin 3.9, Globulin 3.4, Albumin/Globulin Ratio 1.1, Lipase 23 02/06/20 13:13: WBC 1.5 L*, RBC 4.21, Hgb 12.2, Hct 37.7, MCV 89.5, MCH 29.0, MCHC 32.4, RDW 14.0, Plt Count 209, MPV 9.2, Neut # (Auto) Not Reportable, Lymph # (Auto) Not Reportable, [place] # (Auto) Not Reportable, Eos # (Auto) Not Reportable, Baso # (Auto) Not Reportable, Absolute Nucleated RBC Not Reportable, Total Counted 100, Band Neuts % (Manual) 5, Abnorm Lymph % (Manual) 0, Nucleated RBC % Not Reportable, Neutrophils # (Manual) 0.9 L, Lymphocytes # (Manual) 0.6 L , Monocytes # (Manual) 0.0, Eosinophils # (Manual) 0.0, Basophils # (Manual) 0.0 , Differential Comment MANUAL DIFFERENTIAL, WBC Morphology 1+ VACUOLATION, Platelet Estimate NORMAL (130-450,000), Platelet Morphology NORMAL APPEARANCE, RBC Morph Micro Appear NORMAL APPEARANCE Fish Bones: 02/06/20 18:21 02/06/20 13:13 Home Medications and Allergies Allergies/Adverse Reactions: Allergies Allergy/AdvReac Type Severity Reaction Status Date / Time No Known Drug Allergies Allergy Verified 06/07/19 21:45 Anes History & Medical History - Anesthetic History Anesthesia Complications: reports: No previous complications Family history of Anesthesia Complications: Denies Family history of Malignant Hyperthermia: Denies - Medical History Cardiovascular: reports: Murmur Pulmonary: reports: Pneumonia Gastrointestinal: reports: None Urinary: reports: None Neuro: reports: None Musculoskeletal: reports: None Endocrine/Autoimmune: reports: None Blood Disorders: reports: None Skin: reports: None Smoking Status: Current every day smoker - Surgical History General: Cholecystectomy Exam General: Mild distress Dental: WNL Mouth Openin Fingerbreadth Neck Mobility: Normal Mallampati classification: II Thyromental Distance: 4-6 cm Respiratory: Lungs clear Mental/Cognitive Status: Confused Plan Anesthesia Type: General Consent for Procedure(s) Verified and Reviewed: Yes Code Status: Attempt Resuscitation ASA classification: 2-Mild systemic disease Is this case an emergency?: Yes
--- NOTE | 2020-02-06 19:57 | ANESTHESIA POST OP EVALUATION ---
Anesthesia Post Eval - Post Anesthesia Eval Vitals: Last Vital Signs Temp 36.9 C 02/06/20 19:50 Pulse 105 H 02/06/20 19:50 Resp 20 02/06/20 19:50 BP 110/73 02/06/20 19:50 Pulse Ox 98 02/06/20 19:50 CV Function Including HR & BP: positive: Stable Pain Control: positive: Satisfactory Nausea & Vomiting: positive: Negative Mental Status: positive: Baseline Respiratory Status: Airway Patent Hydration Status: Satisfactory Anesthesia Complications: positive: None
[2020-02-06] MEDS ORDERED: LACTATED RINGERS 1,000 ML IV SCH (20:00)
[2020-02-06] MEDS ORDERED: DOXYCYCLINE 100 MG TABLET PO SCH ×2 (21:00)
[2020-02-06] MEDS: KETOROLAC 30 MG/ML VIAL IVP PRN (21:32)
--- NOTE | 2020-02-07 03:48 | OPERATIVE REPORT ---
DATE OF SERVICE: 02/06/2020 Physician: Giles Sandoval MD PREOPERATIVE DIAGNOSIS: Endomyometritis with retained tissue. POSTOPERATIVE DIAGNOSES: Endomyometritis with retained tissue. PROCEDURE PERFORMED: Suction and sharp dilatation and curettage. SURGEON: Giles Sandoval MD. ANESTHESIA PROVIDER: Brock Hauser MD ANESTHESIA: General via laryngeal mask airway with paracervical block. IV FLUIDS: 600 mL ESTIMATED BLOOD LOSS: 140 mL FINDINGS: Pelvic examination revealed a uterus which was retroverted. The uterus sounded to 11 cm. Prior to the procedure, her cervix was already dilated up to roughly 8 mm. Upon suctioning the endometrial cavity out, there was evidence of grape-like clot, but no evidence of any specific tissue. PROCEDURE: Following adequate general anesthesia via LMA, [facility] At this point, she was prepped and draped in the usual fashion. Pelvic examination under anesthesia revealed a uterus which was retroverted. A timeout was performed, following which a speculum was placed in the vagina. The cervix was visualized, grasped with a single-tooth tenaculum. Starting at 6 mm, dilators were utilized all the way up to 8 mm, and a minor amount of resistance was noted. The cervix was then dilated all the way up to 12 mm. A 12 mm curved suction catheter was placed in the uterus. Suction was applied. It was rotated and slowly removed. A large amount of clot without evidence of any gestational products was seen at this time. This was repeated and minimal to no more tissue was removed. The endometrial cavity was then sharply curetted in all 4 quadrants. No additional tissue was encountered. During the procedure, she received Methergine 0.2 mg IM. At this point, the cervix was released from the single-tooth tenaculum. There was no evidence of any bleeding. Speculum was removed from the vagina. The patient tolerated the procedure well and was taken to recovery in stable condition. Sponge and needle counts were correct. TD: 02/06/2020 19:58 BRETT
[2020-02-07] MEDS: KETOROLAC 30 MG/ML VIAL IVP PRN ×3 (04:18→17:37)
[2020-02-07] MEDS: HYDROcod/ACETAM 5/325 MG TABLET PO PRN ×3 (04:19→20:22)
[2020-02-07] MEDS: CEFOTETAN DISODIUM 2 GM in SODIUM CHLORIDE 0.9% MINIBAG 100 ML IV SCH ×2 (07:05→17:37)
[2020-02-07] MEDS: LORazepam 2 MG/ML VIAL IVP PRN ×2 (08:24→10:53)
[2020-02-07] MEDS ORDERED: MAGNESIUM HYDROXIDE 2,400 MG/30 ML UDC PO PRN (08:48)
--- NOTE | 2020-02-07 08:54 | PROVIDER PROGRESS NOTE ---
Subjective - General Procedure Date: 02/06/20 Post Op Days: 1 Procedure Performed: D&C - Review of Systems General: positive: No symptoms (Pain 10/31. was 03/02 in ED) Pulmonary: positive: No symptoms Cardiovascular: positive: No symptoms Gastrointestinal: negative: Nausea, Vomiting, Flatus Objective - Patient Data Reviewed Vital Signs: Yes Vital Signs: Vital Signs x48h Temp Pulse Resp BP Pulse Ox 02/07/20 08:03 36.9 C 102 H 18 118/69 99 02/07/20 04:12 36.7 C 96 18 108/71 99 02/07/20 02:03 36.7 C 87 20 111/65 100 02/07/20 01:06 36.4 C L 94 16 111/65 100 Weight: Weight 02/05/20 02/06/20 02/07/20 23:59 23:59 23:59 Weight (kg) 77.111 kg Intake & Output: Intake and Output Totals x24h 02/05/20 02/06/20 02/07/20 23:59 23:59 23:59 Intake Total 2100 1560 Balance 2100 1560 - Lab Results Lab Results: 02/06/20 18:21 02/06/20 13:13 Other Lab Results: Lab Results x24hrs 02/06/20 02/06/20 02/06/20 Range/Units 18:21 15:07 15:07 WBC 7.9 (4.8-10.8) x10^3/uL RBC 3.40 L (4.20-5.40) 10^6/uL Hgb 9.9 L (12.0-16.0) g/dL Hct 30.1 L (37.0-47.0) % MCV 88.5 (81.0-99.0) fL MCH 29.1 (27.0-31.0) pg MCHC 32.9 (32.0-36.0) g/dL RDW 14.0 (12.0-15.0) % Plt Count 148 (130-450) 10^3/uL MPV 9.6 (7.9-10.8) fL Neut # (Auto) 7.5 H Lymph # (Auto) 0.3 L [place] # (Auto) 0.0 Eos # (Auto) 0.0 Baso # (Auto) 0.0 Absolute Nucleated RBC 0.00 Total Counted Band Neuts % (Manual) (0 - 10) % Abnorm Lymph % (Manual) % Nucleated RBC % 0.0 Neutrophils # (Manual) (1.5-6.6) 10^3/uL Lymphocytes # (Manual) (1.5-3.5) 10^3/uL Monocytes # (Manual) (0.0-1.0) 10^3/uL Eosinophils # (Manual) (0-0.7) 10^3/uL Basophils # (Manual) (0-0.1) 10^3/uL Differential Comment WBC Morphology (NORMAL) Platelet Estimate (NORMAL) Platelet Morphology (NORMAL) RBC Morph Micro Appear (NORMAL) ESR (0-20) mm/Hr Sodium (135-145) mmol/L Potassium (3.5-5.0) mmol/L Chloride (101-111) mmol/L Carbon Dioxide (21-32) mmol/L Anion Gap (6-13) BUN (6-20) mg/dL Creatinine (0.4-1.0) mg/dL Estimated GFR (MDRD) (>89) Glucose (70-100) mg/dL Calcium (8.5-10.3) mg/dL Total Bilirubin (0.2-1.0) mg/dL AST (10-42) IU/L ALT (10-60) IU/L Alkaline Phosphatase (42-121) IU/L Total Protein (6.7-8.2) g/dL Albumin (3.2-5.5) g/dL Globulin (2.1-4.2) g/dL Albumin/Globulin Ratio (1.0-2.2) Lipase (22-51) U/L HCG, Quant 262.83 mIU/mL Urine Color YELLOW Urine Clarity CLEAR (CLEAR) Urine pH 6.5 (5.0-7.5) PH Ur Specific Home 1.025 (1.002-1.030) Urine Protein >=300 H (NEGATIVE) mg/dL Urine Glucose (UA) NEGATIVE (NEGATIVE) mg/dL Urine Ketones NEGATIVE (NEGATIVE) mg/dL Urine Occult Blood MODERATE H (NEGATIVE) Urine Nitrite NEGATIVE (NEGATIVE) Urine Bilirubin NEGATIVE (NEGATIVE) Urine Urobilinogen 0.2 (NORMAL) (NORMAL) E.U./dL Ur Leukocyte Esterase NEGATIVE (NEGATIVE) Urine RBC 0-5 (0-5) /HPF Urine WBC 0-3 (0-5) /HPF Ur Squamous Epith Cells FEW Squamous (<= Few) Urine Bacteria Few (None Seen) /HPF Ur Microscopic Review INDICATED Urine Culture Comments NOT INDICATED 02/06/20 02/06/20 02/06/20 Range/Units 13:13 13:13 13:13 WBC 1.5 L* (4.8-10.8) x10^3/uL RBC 4.21 (4.20-5.40) 10^6/uL Hgb 12.2 (12.0-16.0) g/dL Hct 37.7 (37.0-47.0) % MCV 89.5 (81.0-99.0) fL MCH 29.0 (27.0-31.0) pg MCHC 32.4 (32.0-36.0) g/dL RDW 14.0 (12.0-15.0) % Plt Count 209 (130-450) 10^3/uL MPV 9.2 (7.9-10.8) fL Neut # (Auto) Not Reportable Lymph # (Auto) Not Reportable [place] # (Auto) Not Reportable Eos # (Auto) Not Reportable Baso # (Auto) Not Reportable Absolute Nucleated RBC Not Reportable Total Counted 100 Band Neuts % (Manual) 5 (0 - 10) % Abnorm Lymph % (Manual) 0 % Nucleated RBC % Not Reportable Neutrophils # (Manual) 0.9 L (1.5-6.6) 10^3/uL Lymphocytes # (Manual) 0.6 L (1.5-3.5) 10^3/uL Monocytes # (Manual) 0.0 (0.0-1.0) 10^3/uL Eosinophils # (Manual) 0.0 (0-0.7) 10^3/uL Basophils # (Manual) 0.0 (0-0.1) 10^3/uL Differential Comment MANUAL DIFFERENTIAL WBC Morphology 1+ VACUOLATION (NORMAL) Platelet Estimate NORMAL (130-450,000) (NORMAL) Platelet Morphology NORMAL APPEARANCE (NORMAL) RBC Morph Micro Appear NORMAL APPEARANCE (NORMAL) ESR 22 H (0-20) mm/Hr Sodium 138 (135-145) mmol/L Potassium 3.2 L (3.5-5.0) mmol/L Chloride 103 (101-111) mmol/L Carbon Dioxide 21 (21-32) mmol/L Anion Gap 14.0 H (6-13) BUN 11 (6-20) mg/dL Creatinine 1.2 H (0.4-1.0) mg/dL Estimated GFR (MDRD) 52 L (>89) Glucose 96 (70-100) mg/dL Calcium 8.9 (8.5-10.3) mg/dL Total Bilirubin 0.7 (0.2-1.0) mg/dL AST 19 (10-42) IU/L ALT 15 (10-60) IU/L Alkaline Phosphatase 73 (42-121) IU/L Total Protein 7.3 (6.7-8.2) g/dL Albumin 3.9 (3.2-5.5) g/dL Globulin 3.4 (2.1-4.2) g/dL Albumin/Globulin Ratio 1.1 (1.0-2.2) Lipase 23 (22-51) U/L HCG, Quant mIU/mL Urine Color Urine Clarity (CLEAR) Urine pH (5.0-7.5) PH Ur Specific Home (1.002-1.030) Urine Protein (NEGATIVE) mg/dL Urine Glucose (UA) (NEGATIVE) mg/dL Urine Ketones (NEGATIVE) mg/dL Urine Occult Blood (NEGATIVE) Urine Nitrite (NEGATIVE) Urine Bilirubin (NEGATIVE) Urine Urobilinogen (NORMAL) E.U./dL Ur Leukocyte Esterase (NEGATIVE) Urine RBC (0-5) /HPF Urine WBC (0-5) /HPF Ur Squamous Epith Cells (<= Few) Urine Bacteria (None Seen) /HPF Ur Microscopic Review Urine Culture Comments - Current Medications Current Medications: Current Medications Generic Name Dose Route Start Last Admin Trade Name Freq PRN Reason Stop Dose Admin Hydrocodone Bitart/Acetaminophen 2 tab 02/06/20 19:56 02/07/20 08:24 [place] 5/325 PO 2 tab Q4HR PRN Administration PAIN Cefotetan Disodium 2 gm/ 100 mls @ 200 mls/hr 02/07/20 06:00 02/07/20 08:23 Sodium Chloride IV Infused Q12H ARIEL Infusion Ketorolac Tromethamine 30 mg 02/06/20 19:59 02/07/20 04:18 Toradol Inj (30mg) IVP 02/11/20 19:58 30 mg Q6HR PRN Administration PAIN Lorazepam 0.5 mg 02/06/20 19:56 02/07/20 08:24 Ativan Inj (Vial) IVP 0.5 mg Q2H PRN Administration Anxiety - Physical Exam General Appearance: positive: No acute distress, Alert Eyes Bilateral: positive: Normal inspection Respiratory: positive: Chest non-tender, No respiratory distress, Breath sounds nml Cardiovascular: positive: Regular rate & rhythm, No murmur, No gallop Abdomen: positive: Nml bowel sounds, No distention, Tenderness (mild supra pubic tenderness) Back: negative: CVA tenderness (R), CVA tenderness (L) Skin: positive: Color nml, No rash, Warm, Dry Neurologic/Psychiatric: positive: Oriented x3 Impression/Plan - Problem List Problem List: POD #1 for D&C for hematometra. Progressing Pt is anxious to go home. reminded her that she needs 24-48 hours of antibiotics.
[2020-02-07] MEDS ORDERED: DOXYCYCLINE 100 MG TABLET PO SCH (09:00)
[2020-02-07] MEDS ORDERED: LACTATED RINGERS 1,000 ML IV SCH (09:00)
[2020-02-07 09:20] LABS: BASOPHILS % (AUTO) 0.5 %; EOSINOPHILS % (AUTO) 0.1 %; HGB - HEMOGLOBIN 9.8 g/dL (12.0-16.0); LYMPHOCYTES % (AUTO) 4.3 %; MEAN CORPUSCULAR HEMOGLOBIN 29.5 pg (27.0-31.0); MEAN CORPUSCULAR VOLUME 89.5 fL (81.0-99.0); MONOCYTES % (AUTO) 2.3 %; NEUTROPHILS % (AUTO) 86.1 %; PLT - PLATELET COUNT 170 10^3/uL (130-450); RED BLOOD COUNT 3.32 10^6/uL (4.20-5.40); RED CELL DISTRIBUTION WIDTH 14.5 % (12.0-15.0)
[2020-02-07 09:22] LABS: ABNORMAL LYMPHS % (MANUAL) 0 %
[2020-02-07 10:18] LABS: BAND NEUTROPHILS % (MANUAL) 11 %; LYMPHOCYTES # (MANUAL) 0.6 10^3/uL (1.5-3.5); LYMPHOCYTES % (MANUAL) 2 %; MONOCYTES # (MANUAL) 0.6 10^3/uL (0.0-1.0)
[2020-02-07 10:21] LABS: DIFFERENTIAL COMMENT MANUAL DIFFERENTIAL; PLATELET ESTIMATE, MANUAL NORMAL (130-450,000) (NORMAL); PLATELET MORPHOLOGY NORMAL APPEARANCE (NORMAL); RBC MORPHOLOGY (MULTIPLE) NORMAL APPEARANCE (NORMAL)
[2020-02-07] MEDS: IBUPROFEN 600 MG TABLET PO SCH ×2 (10:54→17:38)
[2020-02-07] MEDS: LACTATED RINGERS 1,000 ML IV SCH ×2 (10:54→20:19)
[2020-02-07] MEDS ORDERED: SODIUM CHLORIDE 0.9% MINIBAG 100 ML IV ONE (17:34)
[2020-02-08] MEDS: HYDROcod/ACETAM 5/325 MG TABLET PO PRN ×2 (00:41→05:28)
[2020-02-08] MEDS: IBUPROFEN 600 MG TABLET PO SCH ×2 (00:41→05:28)
[2020-02-08 00:47] VITALS: BP 132/87
[2020-02-08] MEDS: CEFOTETAN DISODIUM 2 GM in SODIUM CHLORIDE 0.9% MINIBAG 100 ML IV SCH (05:21)
[2020-02-08] MEDS: LACTATED RINGERS 1,000 ML IV SCH (05:37)
== END 2020-02-08 07:23 | disposition left against medical advice (07) ==
LOC: ED 12:43 → SDS 17:52 → MS2 20:15 → SDS 02-07 10:31 → MS2 02-07 10:32
PROVIDERS: ADMIT Obstetrics & Gynecology; ATTEND Obstetrics & Gynecology
DX: O03.6 Delayed or excessive hemorrhage following complete or unspecified spontaneous abortion (principal); F17.210 Nicotine dependence, cigarettes, uncomplicated
CPT/HCPCS: 36415; 59812; 74176; 76830; 76856; 80053; 81001; 83690; 84702; 85025; 85651; 87040; 88304; 96374; 96375; 99285; A9270; J0131; J1170; J2060; J2210; J7120; 81003; 87086

== ENCOUNTER 2021-10-16 08:45 | Outpatient (CLI) | payer MEDICAID ==
[2021-10-16 09:54] LABS: BASOPHILS # (AUTO) 0.1 10^3/uL (0.0-0.1); EOSINOPHILS # (AUTO) 0.1 10^3/uL (0.0-0.7); EOSINOPHILS % (AUTO) 1.4 %; HCT - HEMATOCRIT 41.7 % (37.0-47.0); LYMPHOCYTES # (AUTO) 2.9 10^3/uL (1.5-3.5); LYMPHOCYTES % (AUTO) 34.8 %; MEAN CORPUSCULAR HEMOGLOBIN 26.7 pg (27.0-31.0); MEAN CORPUSCULAR HGB CONC 31.2 g/dL (32.0-36.0); MEAN CORPUSCULAR VOLUME 85.8 fL (81.0-99.0); MEAN PLATELET VOLUME 10.9 fL (7.9-10.8); MONOCYTES # (AUTO) 0.6 10^3/uL (0.0-1.0); MONOCYTES % (AUTO) 6.9 %; NEUTROPHILS # (AUTO) 4.7 10^3/uL (1.5-6.6); NEUTROPHILS % (AUTO) 55.8 %; PLT - PLATELET COUNT 352 10^3/uL (130-450); RED BLOOD COUNT 4.86 10^6/uL (4.20-5.40); RED CELL DISTRIBUTION WIDTH 13.4 % (12.0-15.0); WHITE BLOOD COUNT 8.4 x10^3/uL (4.8-10.8)
[2021-10-16 10:10] LABS: ALBUMIN 3.7 g/dL (3.2-5.5); BILIRUBIN,TOTAL 0.4 mg/dL (0.2-1.0); CALCIUM 9.2 mg/dL (8.5-10.3); CREATININE 0.9 mg/dL (0.4-1.0); POTASSIUM 4.6 mmol/L (3.5-5.0); TOTAL PROTEIN 7.3 g/dL (6.7-8.2)
== END 2021-10-16 23:59 | disposition home or self-care (01) ==
LOC: LAB.R 08:45
PROVIDERS: ATTEND Registered Nurse
DX: R79.89 Other specified abnormal findings of blood chemistry (principal); R94.6 Abnormal results of thyroid function studies; R79.1 Abnormal coagulation profile; R68.89 Other general symptoms and signs
CPT/HCPCS: 80053; 84443; 85025; 85379

== ENCOUNTER 2021-10-17 14:41 | Outpatient (CLI) | payer OTHER, MEDICAID ==
--- NOTE | 2021-10-17 17:22 | XRAY Report ---
PROCEDURE: Chest 2 View X-Ray INDICATIONS: ELEVATED HR TECHNIQUE: 2 view(s) of the chest. COMPARISON: None. FINDINGS: Surgical changes and devices: None. Lungs and pleura: No pleural effusions or pneumothorax. Lungs are clear. Mediastinum: Mediastinal contours are normal. Heart size is normal. Bones and chest wall: No suspicious bony abnormalities. Soft tissues appear unremarkable. IMPRESSION: No acute cardiopulmonary disease process. Reviewed by: Sara Valencia MD, PhD on 10/17/2021 5:21 PM PDT Approved by: Sara Valencia MD, PhD on 10/17/2021 5:21 PM PDT Station ID: [id number]
== END 2021-10-17 14:42 | disposition home or self-care (01) ==
LOC: DI 14:41 → RT 14:42
PROVIDERS: ATTEND Registered Nurse
DX: R00.0 Tachycardia, unspecified (principal)
CPT/HCPCS: 93005

== ENCOUNTER 2022-06-12 08:00 | Outpatient (CLI) | payer MEDICAID ==
[2022-06-12 22:58] LABS: BACTERIAL VAGINOSIS DNA POSITIVE (NEGATIVE); CANDIDA GLABRATA DNA NEGATIVE (NEGATIVE); CANDIDA GROUP DNA NEGATIVE (NEGATIVE); CANDIDA KRUSEI DNA NEGATIVE (NEGATIVE); TRICHOMONAS VAGINALIS DNA NEGATIVE (NEGATIVE)
[2022-06-13 00:01] LABS: CHLAMYDIA TRACHOMATIS DNA NEGATIVE (NEGATIVE); NEISSERIA GONORRHOEAE DNA NEGATIVE (NEGATIVE)
== END 2022-06-12 23:59 | disposition home or self-care (01) ==
LOC: LAB.WC 08:00
PROVIDERS: ATTEND Nurse Practitioner
DX: N89.8 Other specified noninflammatory disorders of vagina (principal); Z11.3 Encounter for screening for infections with a predominantly sexual mode of transmission
CPT/HCPCS: 81514; 87491; 87591; 87661

== ENCOUNTER 2022-06-18 12:44 | Outpatient (CLI) | payer MEDICAID ==
[2022-06-21 13:08] LABS: HCV AB >11.0 s/co ratio (0.0-0.9); HCV IU/ML HCV Not Detected IU/mL (.)
== END 2022-06-18 12:45 | disposition home or self-care (01) ==
LOC: LAB 12:44
PROVIDERS: ATTEND Nurse Practitioner
DX: Z11.3 Encounter for screening for infections with a predominantly sexual mode of transmission (principal)
CPT/HCPCS: 36415; 86803; 87522

== ENCOUNTER 2022-11-18 08:00 | Outpatient (CLI) | payer MEDICAID ==
[2022-11-18 16:56] LABS: CHLAMYDIA TRACHOMATIS DNA NEGATIVE (NEGATIVE); NEISSERIA GONORRHOEAE DNA NEGATIVE (NEGATIVE)
[2022-11-18 20:06] LABS: BACTERIAL VAGINOSIS DNA POSITIVE (NEGATIVE); CANDIDA GLABRATA DNA NEGATIVE (NEGATIVE); CANDIDA GROUP DNA NEGATIVE (NEGATIVE); CANDIDA KRUSEI DNA NEGATIVE (NEGATIVE); TRICHOMONAS VAGINALIS DNA NEGATIVE (NEGATIVE)
== END 2022-11-18 23:59 | disposition home or self-care (01) ==
LOC: LAB.WC 08:00
PROVIDERS: ATTEND Nurse Practitioner
DX: N89.8 Other specified noninflammatory disorders of vagina (principal)
CPT/HCPCS: 81514; 87491; 87591; 87661